=== PATIENT | female | born 1955 | race Caucasian/White ===

== ENCOUNTER → 2016-10-14 | Outpatient (CLI) | payer BC ==
--- NOTE | 2016-10-14 09:06 | XR ---
EXAMINATION TYPE: XR cervical spine limited DATE OF EXAM: 10/14/2016 8:50 AM COMPARISON: NONE HISTORY: 61-year-old female with neck pain TECHNIQUE: 4 views FINDINGS: There is uncovertebral joint arthropathy mid cervical spine and mild endplate spondylosis upper third cervical spine. There is normal alignment. No predental space widening or prevertebral soft tissue s welling. Odontoid view is normal. IMPRESSION: Mild multilevel spondylotic change. No malalignment or acute osseous abnormality seen.
== END | disposition home or self-care (01) ==
LOC: RADXRMAIN 08:32
PROVIDERS: ATTEND Psychiatry & Neurology Neurology
DX: M47.812 Spondylosis without myelopathy or radiculopathy, cervical region (principal)
CPT/HCPCS: 72040

== ENCOUNTER → 2017-01-12 | Outpatient (CLI) | payer BC ==
--- NOTE | 2017-01-12 13:49 | MR ---
EXAMINATION TYPE: MR cervical spine wo con DATE OF EXAM: 01/12/2017 11:33 AM COMPARISON: Radiographs 10/14/2016 HISTORY: 61-year-old female with neck pain TECHNIQUE: Multiplanar, multisequence images of the cervical spine were acquired. FINDINGS: No craniocervical junction abnormality, predental space widening, or prevertebral soft tissue swellin g. There is normal alignment of the cervical spine. No suspicious bone marrow placement. There is desiccation of the intervertebral discs with mild disc interspace narrowing particularly at C4-C5 and C5-C6. Minimal disc osteophyte complexes are present at these levels with corresponding ligamentum flavum th ickening. Additional facet and uncovertebral joint degenerative changes present. At C2-C3, mild facet arthropathy without canal or foraminal stenosis. At C3-C4, there is mild facet arthropathy without canal or foraminal stenosis. At C4-C5, slightly ventral thecal thickening with uncovertebral joint and facet arthropathy. Changes minimally narrow the right neural foramen. There is also mild attenuation of the thecal sac without s ignificant spinal canal stenosis. Abutment of the ventral cord is also present without significant co rd flattening or cord compression. At C5-C6, there is bilateral facet arthropathy and eccentric right-sided uncovertebral joint arthropa thy. Small disc osteophyte complex with ligamentum flavum thickening is also noted. There is abutment and very minimal ventral cord flattening with mild canal stenosis. Changes also result in a moderate right neuroforaminal stenosis here. At C6-C7, no spinal canal or neuroforaminal stenosis. At C7-T1, no spinal canal or neuroforaminal stenosis. Normal course and signal intensity of the cervical cord. There is a 5 mm T2 hyperintense nodule within the left lobe of the thyroid gland incidentally seen. O therwise, no prevertebral or paravertebral soft tissue abnormality. IMPRESSION: 1. Mild multilevel degenerative disc disease. Additional scattered facet and uncovertebral joint arth ropathy. 2. Changes are greatest at C4-C5 and C5-C6 where there is very mild spinal canal narrowing. Disc oste ophyte complex abuts the cord at these levels without any cord deformation or cord compression. 3. Moderate right neuroforaminal stenosis at C5-C6.
== END | disposition home or self-care (01) ==
LOC: RADMRIMAIN 11:00
PROVIDERS: ATTEND Psychiatry & Neurology Neurology
DX: M48.02 Spinal stenosis, cervical region (principal); M99.71 Connective tissue and disc stenosis of intervertebral foramina of cervical region; M50.30 Other cervical disc degeneration, unspecified cervical region; M46.92 Unspecified inflammatory spondylopathy, cervical region
CPT/HCPCS: 72141

== ENCOUNTER → 2018-07-10 | Outpatient (CLI) | payer MEDICARE ==
--- NOTE | 2018-07-13 09:49 | MM ---
Reason for exam: screening (asymptomatic). Last mammogram was performed 1 year ago. History: benign breast biopsy right breast MG 3D Screening Mammo W/Cad Bilateral CC and MLO view(s) were taken. Prior study comparison: July 01, 2017, bilateral mammogram, performed at [facility]. April 08, 2016, bilateral mammogram, performed at [facility]. The breast tissue is heterogeneously dense. This may lower the sensitivity of mammography. No suspicious abnormality. ASSESSMENT: Negative, BI-RAD 1 RECOMMENDATION: Routine screening mammogram of both breasts in 1 year.
== END | disposition home or self-care (01) ==
LOC: RADMAMWWP 07:00
PROVIDERS: ATTEND Obstetrics & Gynecology
DX: Z12.31 Encounter for screening mammogram for malignant neoplasm of breast (principal); Z78.0 Asymptomatic menopausal state
CPT/HCPCS: 77063; 77067

== ENCOUNTER → 2018-08-25 | Outpatient (CLI) | payer MEDICARE ==
--- NOTE | 2018-08-25 16:51 | BD ---
EXAMINATION TYPE: Axial Bone Density DATE OF EXAM: 08/25/2018 COMPARISON: NONE CLINICAL HISTORY: 63 YR OLD FEMALE....ICD-10 CODE: Z13.820 ENCOUNTER FOR SCREENING Height: 65.2 Weight: 107 FRAX RISK QUESTIONS: Current Tobacco Use: YES RISK FACTORS HISTORY OF: Active: YES Diet low in dairy products/other sources of calcium: YES Postmenopausal woman: HYST AT 42 YRS OLD, THEN DHAVAL AT 48 MEDICATIONS: Prednisone or other steroids: INHALERS PRN NEEDED FOR ILLNESS Additional Medications: BP MEDS, REFLUX MEDS, VIT D Additional History: NOTHING TO NOTE EXAM MEASUREMENTS: Bone mineral densitometry was performed using the [employer] System. Bone mineral density as measured about the Lumbar spine is: ----- L1-L4(G/cm2): 1.074 T Score Values are as follows: ----- L1: -1.2 ----- L2: -1.0 ----- L3: -0.4 ----- L4: -1.1 ----- L1-L4: -0.9 Bone mineral density FIRST BONE DENSITY AT [facility] Bone mineral density about the R hip (g/cm2): 1.110 Bone mineral density about the L hip (g/cm2): 1.093 T Score values are as follows: -----R Neck: 0.0 -----L Neck: -0.2 -----R Total: 0.8 -----L Total: 0.7 Bone mineral density THIS IS HER FIRST BONE DENSITY AT [facility] FRAX%s: THERE IS A 5.4% CHANCE FOR A MAJOR OSTEOPOROTIC FX AND A 0.4% FOR HIP FX....PROBABILITY OF FX IN 10 YRS TIME IMPRESSION: Normal (Values between +1 and -1 indicate normal bone mass). Consider repeating this study in 5 year s or sooner if there is some new clinical indication. NOTE: T-SCORE=SD OF THE YOUNG ADULT MEAN.
== END | disposition home or self-care (01) ==
LOC: RADBDWWP 07:11
PROVIDERS: ATTEND Obstetrics & Gynecology
DX: Z13.820 Encounter for screening for osteoporosis (principal); Z78.0 Asymptomatic menopausal state
CPT/HCPCS: 77080

== ENCOUNTER 2019-06-13 16:43 | Observation (INO) | payer MEDICARE ==
[2019-06-13] MEDS ORDERED: SODIUM CHLORIDE 0.9% 1,000 ML IV STA ×2 (17:46)
--- NOTE | 2019-06-13 17:46 | ED ---
Syncope HPI - General Chief Complaint: Syncope Stated Complaint: Syncope, headache Time Seen by Provider: 06/13/19 17:02 Source: patient, RN notes reviewed, old records reviewed Mode of arrival: wheelchair Limitations: no limitations - History of Present Illness Initial Comments: This is a 63-year-old female the ER status post syncopal event tonight. Patient syncopal event 1 the kitchen trying to eat dinner. Patient has history of vertigo she does take meclizine was unhelpful. Family very concerned over patient, has had vertigo for about 5 years with no improvement in symptoms. Multiple evaluations including neurology. Patient is had one prior syncopal episode this is her second. Patient complains of right elbow pain right hip pain. She was able to get up off the ground after some time and ambulate. did find her after she fell. She denies vomiting to prolonged amount of time the ground. Patient is recent medication changes she has headaches chronic headaches. No chest pain no shortness of breath no abdominal pain. Appetite has been severely diminished as of late MD Complaint: loss of consciousness, collapsed -: hour(s) Prodromal Symptoms: headache (Chronic), lightheaded (Vertiginous symptoms), nausea/vomiting (Decreased appetite) -: second(s) Witnessed: yes - by bystander Injuries Sustained Associated with Event: RUE, RLE Current Symptoms: back to baseline History: previous syncopal episode, other (History of vertigo severe) - Related Data Home Medications Medication Instructions Recorded Confirmed Aspirin EC [Ecotrin Low Dose] 81 mg PO HS 06/13/19 06/13/19 Cholecalciferol [Vitamin D3 (25 5,000 unit PO HS 06/13/19 06/13/19 Mcg = 1000 Iu)] Meclizine [Antivert] 25 mg PO TID PRN 06/13/19 06/13/19 Metoprolol Succinate [Toprol XL] 25 mg PO HS 06/13/19 06/13/19 Allergies Allergy/AdvReac Type Severity Reaction Status Date / Time No Known Allergies Allergy Verified 06/13/19 18:05 Review of Systems ROS Statement: Those systems with pertinent positive or pertinent negative responses have been documented in the HPI. ROS Other: All systems not noted in ROS Statement are negative. Past Medical History Past Medical History: COPD, Syncope History of Any Multi-Drug Resistant Organisms: None Reported Past Surgical History: Appendectomy, Hysterectomy, Orthopedic Surgery Past Psychological History: No Psychological Hx Reported Smoking Status: Current every day smoker Past Alcohol Use History: None Reported Past Drug Use History: None Reported General Exam Limitations: no limitations General appearance: alert, in no apparent distress Head exam: Present: atraumatic, normocephalic, normal inspection Eye exam: Present: normal appearance, EOMI. Absent: scleral icterus, conjunctival injection, periorbital swelling ENT exam: Present: normal exam, mucous membranes moist Neck exam: Present: normal inspection. Absent: tenderness, meningismus, lymphadenopathy Respiratory exam: Present: normal lung sounds bilaterally. Absent: respiratory distress, wheezes, rales, rhonchi, stridor Cardiovascular Exam: Present: regular rate, normal rhythm, normal heart sounds. Absent: systolic murmur, diastolic murmur, rubs, gallop, clicks GI/Abdominal exam: Present: soft, normal bowel sounds. Absent: distended, tenderness, guarding, rebound, rigid Extremities exam: Present: normal inspection, full ROM, normal capillary refill. Absent: tenderness, pedal edema, joint swelling, calf tenderness Back exam: Present: normal inspection Neurological exam: Present: alert, oriented X3, CN II-XII intact Psychiatric exam: Present: normal affect, normal mood Skin exam: Present: warm, dry, intact, normal color. Absent: rash Course Vital Signs 06/13/19 06/13/19 16:51 19:14 Temperature 98.0 F 98.3 F Pulse Rate 73 63 Respiratory 18 18 Rate Blood Pressure 162/67 126/68 O2 Sat by Pulse 98 97 Oximetry - Reevaluation(s) Reevaluation #1: 06/13/19 17:46 Medical records reviewed Reevaluation #2: 06/13/19 20:03 Patient has no recurrent syncopal episode here in the ER - Consultations Consultation #1: Spoke Dr. Curtis anna for patient admission EKG Findings - EKG Comments: EKG Findings:: EKG shows sinus rhythm rate of 70, PA 122, QRS 66, QTc 477 Medical Decision Making - Medical Decision Making 63 female the ER with persistent vertigo, syncope. Patient will be admitted for evaluation regarding syncope, patient also has new lung mass undiagnosed prior. Weight loss. Dehydration. - Lab Data Result diagrams: 06/13/19 17:50 06/13/19 17:50 Lab Results 06/13/19 06/13/19 06/13/19 Range/Units 17:50 17:50 17:50 WBC 9.0 (3.8-10.6) k/uL RBC 4.71 (3.80-5.40) m/uL Hgb 14.8 (11.4-16.0) gm/dL Hct 45.8 (34.0-46.0) % MCV 97.2 (80.0-100.0) fL MCH 31.5 (25.0-35.0) pg MCHC 32.4 (31.0-37.0) g/dL RDW 13.6 (11.5-15.5) % Plt Count 144 L (150-450) k/uL Neutrophils % 80 % Lymphocytes % 12 % Monocytes % 5 % Eosinophils % 1 % Basophils % 0 % Neutrophils # 7.2 (1.3-7.7) k/uL Lymphocytes # 1.1 (1.0-4.8) k/uL Monocytes # 0.5 (0-1.0) k/uL Eosinophils # 0.1 (0-0.7) k/uL Basophils # 0.0 (0-0.2) k/uL PT (9.0-12.0) sec INR (<1.2) APTT (22.0-30.0) sec Sodium 140 (137-145) mmol/L Potassium 4.0 (3.5-5.1) mmol/L Chloride 105 (98-107) mmol/L Carbon Dioxide 27 (22-30) mmol/L Anion Gap 8 mmol/L BUN 26 H (7-17) mg/dL Creatinine 0.96 (0.52-1.04) mg/dL Est GFR (CKD-EPI)AfAm 72 (>60 ml/min/1.73 sqM) Est GFR (CKD-EPI)NonAf 62 (>60 ml/min/1.73 sqM) Glucose 106 H (74-99) mg/dL Plasma Lactic Acid Misael 0.8 (0.7-2.0) mmol/L Calcium 9.4 (8.4-10.2) mg/dL Phosphorus 3.7 (2.5-4.5) mg/dL Magnesium 2.0 (1.6-2.3) mg/dL Total Bilirubin 0.4 (0.2-1.3) mg/dL AST 23 (14-36) U/L ALT 18 (9-52) U/L Alkaline Phosphatase 70 (38-126) U/L Creatine Kinase 59 (30-135) U/L Troponin I (0.000-0.034) ng/mL Total Protein 6.7 (6.3-8.2) g/dL Albumin 4.0 (3.5-5.0) g/dL TSH 2.400 (0.465-4.680) mIU/L Urine Color Urine Appearance (Clear) Urine pH (5.0-8.0) Ur Specific [place] (1.001-1.035) Urine Protein (Negative) Urine Glucose (UA) (Negative) Urine Ketones (Negative) Urine Blood (Negative) Urine Nitrite (Negative) Urine Bilirubin (Negative) Urine Urobilinogen (<2.0) mg/dL Ur Leukocyte Esterase (Negative) Urine RBC (0-5) /hpf Urine WBC (0-5) /hpf Ur Squamous Epith Cells (0-4) /hpf Amorphous Sediment (None) /hpf Urine Mucus (None) /hpf 06/13/19 06/13/19 06/13/19 Range/Units 17:50 17:50 18:05 WBC (3.8-10.6) k/uL RBC (3.80-5.40) m/uL Hgb (11.4-16.0) gm/dL Hct (34.0-46.0) % MCV (80.0-100.0) fL MCH (25.0-35.0) pg MCHC (31.0-37.0) g/dL RDW (11.5-15.5) % Plt Count (150-450) k/uL Neutrophils % % Lymphocytes % % Monocytes % % Eosinophils % % Basophils % % Neutrophils # (1.3-7.7) k/uL Lymphocytes # (1.0-4.8) k/uL Monocytes # (0-1.0) k/uL Eosinophils # (0-0.7) k/uL Basophils # (0-0.2) k/uL PT 9.7 (9.0-12.0) sec INR 0.9 (<1.2) APTT 22.1 (22.0-30.0) sec Sodium (137-145) mmol/L Potassium (3.5-5.1) mmol/L Chloride (98-107) mmol/L Carbon Dioxide (22-30) mmol/L Anion Gap mmol/L BUN (7-17) mg/dL Creatinine (0.52-1.04) mg/dL Est GFR (CKD-EPI)AfAm (>60 ml/min/1.73 sqM) Est GFR (CKD-EPI)NonAf (>60 ml/min/1.73 sqM) Glucose (74-99) mg/dL Plasma Lactic Acid Misael (0.7-2.0) mmol/L Calcium (8.4-10.2) mg/dL Phosphorus (2.5-4.5) mg/dL Magnesium (1.6-2.3) mg/dL Total Bilirubin (0.2-1.3) mg/dL AST (14-36) U/L ALT (9-52) U/L Alkaline Phosphatase (38-126) U/L Creatine Kinase (30-135) U/L Troponin I <0.012 (0.000-0.034) ng/mL Total Protein (6.3-8.2) g/dL Albumin (3.5-5.0) g/dL TSH (0.465-4.680) mIU/L Urine Color Yellow Urine Appearance Clear (Clear) Urine pH 5.0 (5.0-8.0) Ur Specific [place] 1.021 (1.001-1.035) Urine Protein Negative (Negative) Urine Glucose (UA) Negative (Negative) Urine Ketones Negative (Negative) Urine Blood Negative (Negative) Urine Nitrite Negative (Negative) Urine Bilirubin Negative (Negative) Urine Urobilinogen <2.0 (<2.0) mg/dL Ur Leukocyte Esterase Trace H (Negative) Urine RBC 2 (0-5) /hpf Urine WBC 7 H (0-5) /hpf Ur Squamous Epith Cells 4 (0-4) /hpf Amorphous Sediment Rare H (None) /hpf Urine Mucus Rare H (None) /hpf - Radiology Data Radiology results: report reviewed (CT brain is negative for acute disease x-ray right elbow and right hip negative for traumatic injury, chest x-ray shows likely mass, CT of chest began shows likely lung mass), image reviewed Disposition Clinical Impression: Vasovagal syncope, Syncope, Vertigo, Lung mass Disposition: ADMITTED IP TO THIS HOSP Condition: Fair Is patient prescribed a controlled substance at d/c from ED?: No Referrals: Chris Grossman MD [Primary Care Provider] - 1-2 days
[2019-06-13 18:07] LABS: Basophils % (A) 0 %; Eosinophils # (A) 0.1 k/uL (0-0.7); Eosinophils % (A) 1 %; HCT 45.8 % (34.0-46.0); HGB 14.8 gm/dL (11.4-16.0); Lymphocytes # (A) 1.1 k/uL (1.0-4.8); Lymphocytes % (A) 12 %; MCH 31.5 pg (25.0-35.0); MCHC 32.4 g/dL (31.0-37.0); MCV 97.2 fL (80.0-100.0); Mean Platelet Volume 7.9; Monocytes # (A) 0.5 k/uL (0-1.0); Monocytes % (A) 5 %; Neutrophils # (A) 7.2 k/uL (1.3-7.7); Neutrophils % (A) 80 %; Platelet Count 144 k/uL (150-450); RBC 4.71 m/uL (3.80-5.40); RDW 13.6 % (11.5-15.5)
[2019-06-13 18:16] LABS: Calcium 9.4 mg/dL (8.4-10.2); Phosphorus 3.7 mg/dL (2.5-4.5); Total Bilirubin 0.4 mg/dL (0.2-1.3); Total Protein 6.7 g/dL (6.3-8.2)
--- NOTE | 2019-06-13 18:25 | CT ---
EXAMINATION TYPE: CT brain wo con DATE OF EXAM: 06/13/2019 COMPARISON: None HISTORY: Weakness and dizziness. No known injury CT DLP: 1052.4 mGycm Automated exposure control for dose reduction was used. FINDINGS: Ventricles of normal size. There is no mass effect nor midline shift. There is no sign of intracrania l hemorrhage. The calvarium is intact. IMPRESSION: MILD ATROPHY. NO ACUTE INTRACRANIAL ABNORMALITY.
[2019-06-13 18:30] LABS: Amorphous Sediment,Urine Rare /hpf; Appearance,Urine Clear (Clear); Bilirubin,Urine Negative (Negative); Blood,Urine Negative (Negative); Color,Urine Yellow; Glucose,Urine (UA) Negative (Negative); Ketones,Urine Negative (Negative); Leukocyte Esterase,Urine Trace (Negative); Mucus,Urine Rare /hpf; Nitrite,Urine Negative (Negative); Protein,Urine Negative (Negative); RBC,Urine 2 /hpf (0-5); Specific Gravity,Urine 1.021 (1.001-1.035); Squamous Epithelial Cell,Urine 4 /hpf (0-4); Urobilinogen,Urine <2.0 mg/dL (<2.0)
[2019-06-13 18:34] LABS: INR 0.9 (<1.2); Partial Thromboplastin Time 22.1 sec (22.0-30.0); Prothrombin Time 9.7 sec (9.0-12.0)
--- NOTE | 2019-06-13 18:54 | XR ---
EXAMINATION TYPE: XR elbow complete RT DATE OF EXAM: 06/13/2019 COMPARISON: NONE HISTORY: Elbow pain TECHNIQUE: 3 views FINDINGS: There is minor spurring on the olecranon process of the ulna. I see no fracture nor disloca tion. Joint spaces are fairly normal. IMPRESSION: Minor spur formation. No fracture seen.
--- NOTE | 2019-06-13 18:54 | XR ---
EXAMINATION TYPE: XR chest 2V DATE OF EXAM: 06/13/2019 COMPARISON: NONE HISTORY: Weakness fall today. TECHNIQUE: Frontal and lateral views of the chest are obtained. FINDINGS: There is coarsening of the interstitial pulmonary markings. Heart size is normal. There ar e chest leads. Costophrenic angles are clear. There is 1.8 cm masslike density in the lateral right u pper lobe. There is no pneumothorax. IMPRESSION: Coarse lung markings. Right upper lobe masslike density. Follow-up recommended.
--- NOTE | 2019-06-13 18:55 | XR ---
EXAMINATION TYPE: XR Hip RT and AP Pelvis DATE OF EXAM: 06/13/2019 COMPARISON: NONE HISTORY: Hip pain TECHNIQUE: A single AP view of the pelvis is obtained. Two views of the right hip are obtained. FINDINGS: The pelvic ring is intact. Proximal right femur and hip joint appear normal. There is no si gn of hip dysplasia. Sacroiliac joints appear intact. IMPRESSION: Negative pelvis and right hip exam.
--- NOTE | 2019-06-13 19:28 | CT ---
EXAMINATION TYPE: CT abdomen pelvis w con DATE OF EXAM: 06/13/2019 COMPARISON: None HISTORY: SOB CT DLP: 486.4 mGycm Automated exposure control for dose reduction was used. TECHNIQUE: Helical acquisition of images was performed from the lung bases through the pelvis. CONTRAST: Performed without Oral Contrast and with IV Contrast, patient injected with 100 mL of Isovue 370. FINDINGS: There is some patchy reticular density at the lung bases consistent with scarring and atelectasis. He art is borderline enlarged. There is no pleural effusion. There is no pericardial effusion. Liver shows no focal defect. Spleen is intact. Stomach appears normal. There is no evidence of pancre atic mass. Gallbladder shows multiple gallstones. There is no adrenal mass. Kidneys show satisfactory contrast opacification. There is no hydronephrosi s. There is 3.5 cm cortical cyst lateral right kidney. Ureters are not dilated. There is no retroperi toneal adenopathy. Bladder distends smoothly. There is no inguinal hernia. There is no free fluid in the pelvis. There is no mesenteric edema. There is no ascites or free air. There is no sign of a bowel obstruction. Abdominal aorta is atheromatous. Lumbar spine is intact. The re is no compression fracture. Bony pelvis is intact.: Appendix is not seen. There is no sign of thickened appendix. IMPRESSION: THERE ARE NUMEROUS GALLSTONES. NO DILATED DUCTS. NO SIGN OF ACUTE ABDOMEN AND PELVIS.
--- NOTE | 2019-06-13 19:33 | CT ---
EXAMINATION TYPE: CT angio chest DATE OF EXAM: 06/13/2019 7:22 PM COMPARISON: None HISTORY: SOB CT DLP: 241.9 mGycm Automated exposure control for dose reduction was used. CONTRAST: CTA scan of the thorax is performed with IV Contrast, patient injected with 100 mL of Isovue 370, pul monary embolism protocol. . There are 3-D post processed images. FINDINGS: There is coarse interstitial infiltrate in both lungs with honeycomb pattern. There is pulmonary emph ysema. There is 2.1 cm noncalcified stellate mass in the right upper lobe laterally adjacent to the c hest wall. This is in the posterior segment of the right upper lobe. There is no pleural effusion. Heart is slightly enlarged. There is normal contrast opacification of the pulmonary arteries. I see no filling defect. There is n o mediastinal adenopathy. There are a few mediastinal lymph nodes that measure up to 10 mm. Thoracic aorta shows no aneurysm or dissection. The ascending aorta measures 3.9 cm. Thoracic spine is intact. Ribs appear intact. Sternum appears normal. IMPRESSION: NO EVIDENCE OF PULMONARY EMBOLISM. CHANGES IN THE LUNGS CONSISTENT WITH ADVANCED INTERSTITIAL FIBROSIS AND MILD EMPHYSEMA. STELLATE RIGHT UPPER LOBE MASS SUGGESTIVE OF PRIMARY MALIGNANCY.
[2019-06-13] MEDS ORDERED: MORPHINE SULFATE 4 MG/ML SYRINGE IV PRN (20:00)
[2019-06-13] MEDS ORDERED: NITROGLYCERIN SL TABS 0.4 MG TAB SUBLINGUAL PRN (20:00)
[2019-06-13] MEDS ORDERED: LORazepam 2 MG/ML INJ IV STA (20:33)
[2019-06-13] MEDS ORDERED: LORazepam 2 MG/ML INJ IV PRN (20:33)
[2019-06-13] MEDS ORDERED: MECLIZINE 25 MG TAB PO PRN (22:20)
[2019-06-13] MEDS ORDERED: METOPROLOL SUCCINATE (ER) 25 MG TAB.ER.24H PO SCH (22:30)
[2019-06-13] MEDS: CHOLECALCIFEROL 1,000 UNIT TAB PO SCH (23:31)
[2019-06-13] MEDS: ACETAMINOPHEN TAB 325 MG TAB PO PRN (23:33)
[2019-06-14 05:15] VITALS: RESP 16
[2019-06-14 06:40] LABS: Cholesterol 126 mg/dL (<200); HDL Cholesterol 41 mg/dL (40-60); LDL Cholesterol,Calculated 69 mg/dL (0-99); Triglycerides 81 mg/dL (<150)
[2019-06-14] MEDS: ENOXAPARIN 40 MG/0.4 ML SYRINGE SQ SCH (07:49)
[2019-06-14] MEDS: MORPHINE SULFATE 4 MG/ML SYRINGE IV PRN (07:55)
--- NOTE | 2019-06-14 08:27 | P.CNPUL ---
History of Present Illness Consult date: 06/14/19 Reason for consult: dyspnea, cough, COPD, pulmonary fibrosis Chief complaint: Syncopal episode History of present illness: This is a 63-year-old female with extensive history of smoking and nicotine use with the history of pulmonary fibrosis data as per of cane from the daughter suggestive of the nodule in the lung but however I couldn't find any x-rays in [facility] record up to 2016 she underwent extensive radiographic studies for a syncopal episode a chest x-ray was suggestive of pulmonary fibrosis predominantly upper lobe with right upper lobe mass about 2 cm in size computed tomography scan confirmed presence of mass, also have extensive honeycombing suggestive of IPF the tumor is very close to thoracic wall and should be accessible with CT-guided biopsy Review of Systems All systems: negative Past Medical History Past Medical History: COPD, GERD/Reflux, Hypertension, Pneumonia, Syncope Additional Past Medical History / Comment(s): 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, vertigo History of Any Multi-Drug Resistant Organisms: None Reported Past Surgical History: Appendectomy, Hysterectomy, Orthopedic Surgery Additional Past Surgical History / Comment(s): Right knee scope Past Anesthesia/Blood Transfusion Reactions: Postoperative Nausea & Vomiting (PONV) Past Psychological History: No Psychological Hx Reported Smoking Status: Current every day smoker Past Alcohol Use History: None Reported Past Drug Use History: None Reported Medications and Allergies Home Medications Medication Instructions Recorded Confirmed Type Aspirin EC [Ecotrin Low Dose] 81 mg PO HS 06/13/19 06/13/19 History Cholecalciferol [Vitamin D3 (25 5,000 unit PO HS 06/13/19 06/13/19 History Mcg = 1000 Iu)] Meclizine [Antivert] 25 mg PO TID PRN 06/13/19 06/13/19 History Metoprolol Succinate [Toprol XL] 25 mg PO HS 06/13/19 06/13/19 History Allergies Allergy/AdvReac Type Severity Reaction Status Date / Time nicotine Allergy Rash/Hives Verified 06/13/19 22:01 varenicline [From Chantix] Allergy Rash/Hives Verified 06/13/19 22:01 Physical Exam Vitals: Vital Signs Temp Pulse Pulse Resp BP BP Pulse Ox 06/14/19 05:00 98.0 F 53 L 16 125/66 93 L 06/13/19 23:30 58 L 18 06/13/19 21:00 98.2 F 59 L 20 137/67 93 L 06/13/19 20:26 89 17 133/63 96 06/13/19 19:14 98.3 F 63 18 126/68 97 06/13/19 16:51 98.0 F 73 18 162/67 98 Intake and Output 06/13/19 06/14/19 06/14/19 22:59 06:59 14:59 Intake Total 200 590 Balance 200 590 Intake: Intake, IV Titration 200 Amount Sodium Chloride 0.9% 1, 200 000 ml @ 100 mls/hr IV . Q10H STA Rx#:[id number] Oral 590 Other: Voiding Method Bedside Commode Bedside Commode # Voids 2 Weight 47.627 kg - Constitutional General appearance: average body habitus, cooperative, disheveled, mild distress - EENT Eyes: EOMI, PERRLA, poor dentition, normal appearance ENT: normal oropharynx Ears: bilateral: normal - Neck Neck: normal ROM Carotids: bilateral: upstroke normal Thyroid: bilateral: normal size - Respiratory Respiratory: bilateral: CTA, rales (Dry Rales bilaterally) - Cardiovascular Rhythm: regular Heart sounds: normal: S1, S2 - Integumentary Integumentary: normal, normal turgor - Neurologic Neurologic: CNII-XII intact - Musculoskeletal Musculoskeletal: gait normal, generalized weakness, strength equal bilaterally - Psychiatric Psychiatric: A&O x's 3, appropriate affect, intact judgment & insight Results - Laboratory Findings CBC and BMP: 06/13/19 17:50 06/13/19 17:50 PT/INR, D-dimer PT 9.7 sec (9.0-12.0) 06/13/19 17:50 INR 0.9 (<1.2) 06/13/19 17:50 Abnormal lab findings: Abnormal Labs 06/13/19 06/13/19 06/13/19 17:50 17:50 18:05 Plt Count 144 L BUN 26 H Glucose 106 H Ur Leukocyte Esterase Trace H Urine WBC 7 H Amorphous Sediment Rare H Urine Mucus Rare H - Diagnostic Findings Chest x-ray: report reviewed, image reviewed CT scan - chest: report reviewed, image reviewed (Finding as noted above on CAT scan and x-ray) Assessment and Plan Assessment: Right upper lobe mass/nodule 2.1 cm highly cystic of neoplasm End-stage lung disease secondary severe COPD emphysema Syncopal episode of unclear etiology IPF Extensive smoking and nicotine use History of chronic vertigo Plan: Consult interventional radiology for CT-guided biopsy of right upper lobe mass Patient can be placed on bronchodilators as needed further workup and evaluation as outpatient of COPD and IPF PET scan as outpatient Time with Patient: Greater than 30
[2019-06-14] MEDS ORDERED: ASPIRIN 325 MG TAB PO SCH (09:00)
[2019-06-14 13:05] VITALS: BMI 16.9
--- NOTE | 2019-06-14 15:06 | P.CRDCN ---
History of Present Illness History of present illness: This is a pleasant 63-year-old female past medical history significant for COPD, nonrheumatic aortic valve insufficiency, history of palpitations, vertigo and chronic nicotine dependence. She follows in the office with Dr. Hale. We have been asked to see her in consultation secondary to a syncopal episode. Per the patient and her family yesterday all day she had been feeling somewhat dizzy. She states she does have a history of vertigo in the past and is prescribed antivert. However, antivert didn't seem to be helping yesterday. She was getting up to walk in the house and started feeling increasingly dizzy and light headed. She was also nauseated and mildly diaphoretic. Next thing she knows she was on the floor. Her heard her fall and came to her aid. She believes there was a brief LOC. When she got up she continued to feel dizzy, nauseated and was diaphoretic. Blood pressure was not initially checked at home. An hour or so later they did check her BP and it was elevated around 150 systolic, which is abnormal for her. Typically she runs on the low side of normal per the daughter. On arrival blood pressure was 162/67 heart rate in the 60-80's. Telemetry tracings indicated this morning around 0437 she had a brief run of SVT heart rate was around 150. She was sleeping at the time and asymptomatic. Chest x-ray reveals coarse lung markings, right upper lobe masslike density. CTA chest negative for pulmonary embolism, advanced interstitial fibrosis, COPD and right upper lobe mass suggestive of primary malignancy. CT of the abdomen and pelvis is unremarkable. CT of the brain revealed mild atrophy with no acute intracranial abnormality. Laboratory data reviewed, WBC 9, hemoglobin 14.8, platelets 144, sodium 140, potassium 4.0, creatinine 0.96, magnesium 2.0, cardiac enzymes negative 3, TSH 2.4, LDL 69. Current daily cardiac medications include Toprol 25 mg at bedtime Most recent echocardiogram obtained in July 2018 in the office reveals preserved LV systolic function with ejection fraction 55%, no wall motion abnormalities, normal diastolic function, moderate mitral regurgitation, moderate aortic regurgitation, mild tricuspid regurgitation. At the time of my exam: CONSTITUTIONAL: Denies fever. Denies chills. EYES: Denies blurred vision. Denies vision changes. Denies eye pain. EARS, NOSE, MOUTH & THROAT: Denies headache. Denies sore throat. Denies ear pain. CARDIOVASCULAR: Denies chest pain. Denies shortness of breath. Denies orthopnea. Denies PND. Denies palpitations. RESPIRATORY: Denies cough. GASTROINTESTINAL: Denies abdominal pain. Denies diarrhea. Denies constipation. Denies nausea. Denies vomiting. MUSCULOSKELETAL: Denies myalgias. INTEGUMENTARY: Denies pruitis. Denies rash. NEUROLOGIC: Denies numbness. Denies tingling. Denies weakness. PSYCHIATRIC: Denies anxiety. Denies depression. ENDOCRINE: Denies fatigue. Denies weight change. Denies polydipsia. Denies polyurina. GENITOURINARY: Denies burning, hematuria or urgency with micturation. HEMATOLOGIC: Denies history of anemia. Denies bleeding. Blood pressure 137/67 heart rate 59 afebrile maintaining oxygen saturation on room air GENERAL: This is a 63-year-old female in no apparent distress at the time of my examination. HEENT: Head is atraumatic, normocephalic. Pupils are equal, round. Sclerae anicteric. Conjunctivae are clear. Mucous membranes of the mouth are moist. Neck is supple. There is no jugular venous distention. No carotid bruit is heard. LUNGS: Clear to auscultation no wheezes, rales or rhonchi. No chest wall tenderness is noted on palpation or with deep breathing. HEART: Regular rate and rhythm with systolic ejection murmur at the left sternal border, no rubs or gallops. S1 and S2 heard. ABDOMEN: Soft, nontender. Bowel sounds are heard. No organomegaly noted. EXTREMITIES: No evidence of peripheral edema and no calf tenderness noted. VASCULAR: Radial and dorsalis pedis pulses palpated, no evidence of clubbing. NEUROLOGIC: Patient is awake, alert and oriented x3. ASSESSMENT Syncopal episode Thrombocytopenia Right lung mass suggestive of primary malignancy, hold aspirin for interventional radiology COPD Non-rheumatic aortic valve insufficiency Chronic nicotine dependence PLAN An acute coronary event has been ruled out. Telemetry tracings us for have been unremarkable for bradycardia arrhythmia Obtain 2-D echocardiogram and Doppler study to assess cardiac structure and function. Increase toprol to 50 mg at bedtime. Ongoing telemetry monitoring for another 24 hours. Check for orthostatic changes. Thank you kindly for this consultation. Nurse Practitioner note has been reviewed, I agree with a documented findings and plan of care. Patient was seen and examined. Past Medical History Past Medical History: COPD, GERD/Reflux, Hypertension, Pneumonia, Syncope Additional Past Medical History / Comment(s): 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, vertigo History of Any Multi-Drug Resistant Organisms: None Reported Past Surgical History: Appendectomy, Hysterectomy, Orthopedic Surgery Additional Past Surgical History / Comment(s): Right knee scope Past Anesthesia/Blood Transfusion Reactions: Postoperative Nausea & Vomiting (PONV) Past Psychological History: No Psychological Hx Reported Smoking Status: Current every day smoker Past Alcohol Use History: None Reported Past Drug Use History: None Reported Medications and Allergies Home Medications Medication Instructions Recorded Confirmed Type Aspirin EC [Ecotrin Low Dose] 81 mg PO HS 06/13/19 06/13/19 History Cholecalciferol [Vitamin D3 (25 5,000 unit PO HS 06/13/19 06/13/19 History Mcg = 1000 Iu)] Meclizine [Antivert] 25 mg PO TID PRN 06/13/19 06/13/19 History Metoprolol Succinate [Toprol XL] 25 mg PO HS 06/13/19 06/13/19 History Allergies Allergy/AdvReac Type Severity Reaction Status Date / Time nicotine Allergy Rash/Hives Verified 06/13/19 22:01 [email or web address] [From Chantix] Allergy Rash/Hives Verified 06/13/19 22:01 Physical Exam Vitals: Vital Signs Temp Pulse Pulse Resp BP BP Pulse Ox 06/14/19 11:44 98.5 F 56 L 16 151/67 97 06/14/19 05:00 98.0 F 53 L 16 125/66 93 L 06/13/19 23:30 58 L 18 06/13/19 21:00 98.2 F 59 L 20 137/67 93 L 06/13/19 20:26 89 17 133/63 96 06/13/19 19:14 98.3 F 63 18 126/68 97 06/13/19 16:51 98.0 F 73 18 162/67 98 Intake and Output 06/13/19 06/14/19 06/14/19 22:59 06:59 14:59 Intake Total 200 590 Balance 200 590 Intake: Intake, IV Titration 200 Amount Sodium Chloride 0.9% 1, 200 000 ml @ 100 mls/hr IV . Q10H STA Rx#:[id number] Oral 590 Other: Voiding Method Bedside Commode Bedside Commode # Voids 2 Weight 47.627 kg 47.627 kg Results 06/13/19 17:50 06/13/19 17:50 Cardiac Enzymes 06/13/19 06/13/19 06/13/19 Range/Units 17:50 17:50 22:34 AST 23 (14-36) U/L Troponin I <0.012 <0.012 (0.000-0.034) ng/mL 06/14/19 Range/Units 06:10 AST (14-36) U/L Troponin I <0.012 (0.000-0.034) ng/mL Coagulation 06/13/19 Range/Units 17:50 PT 9.7 (9.0-12.0) sec APTT 22.1 (22.0-30.0) sec Lipids 06/14/19 Range/Units 06:10 Triglycerides 81 (<150) mg/dL Cholesterol 126 (<200) mg/dL HDL Cholesterol 41 (40-60) mg/dL CBC 06/13/19 Range/Units 17:50 WBC 9.0 (3.8-10.6) k/uL RBC 4.71 (3.80-5.40) m/uL Hgb 14.8 (11.4-16.0) gm/dL Hct 45.8 (34.0-46.0) % Plt Count 144 L (150-450) k/uL Comprehensive Metabolic Panel 06/13/19 Range/Units 17:50 Sodium 140 (137-145) mmol/L Potassium 4.0 (3.5-5.1) mmol/L Chloride 105 (98-107) mmol/L Carbon Dioxide 27 (22-30) mmol/L BUN 26 H (7-17) mg/dL Creatinine 0.96 (0.52-1.04) mg/dL Glucose 106 H (74-99) mg/dL Calcium 9.4 (8.4-10.2) mg/dL AST 23 (14-36) U/L ALT 18 (9-52) U/L Alkaline Phosphatase 70 (38-126) U/L Total Protein 6.7 (6.3-8.2) g/dL Albumin 4.0 (3.5-5.0) g/dL Current Medications Generic Name Dose Route Start Last Admin Trade Name Freq PRN Reason Stop Dose Admin Acetaminophen 650 mg 06/13/19 22:19 06/13/19 23:33 Tylenol Tab PO 650 mg Q4HR PRN Administration Fever and/ or Pain Aspirin 325 mg 06/14/19 09:00 06/14/19 07:49 Aspirin PO 325 mg DAILY JE Administration Cholecalciferol 5,000 unit 06/13/19 22:30 06/13/19 23:31 Vitamin D3 (25 Mcg = 1000 Iu) PO 5,000 unit HS JE Administration Enoxaparin Sodium 40 mg 06/14/19 09:00 06/14/19 07:49 Lovenox SQ 40 mg DAILY [facility] Administration Lorazepam 1 mg 06/13/19 20:33 Ativan IV Q4HR PRN Anxiety Meclizine HCl 25 mg 06/13/19 22:20 Antivert PO TID PRN Vertigo Metoprolol Succinate 25 mg 06/13/19 22:30 06/13/19 23:33 Toprol Xl PO 25 mg HS JE Administration Morphine Sulfate 4 mg 06/13/19 20:34 06/14/19 07:55 Morphine Sulfate (Inj) IV 4 mg Q4HR PRN Administration Pain Nitroglycerin 0.4 mg 06/13/19 20:00 Nitrostat SUBLINGUAL Q5M PRN Chest Pain Intake and Output 06/13/19 06/14/19 06/14/19 22:59 06:59 14:59 Intake Total 200 590 Balance 200 590 Intake: Intake, IV Titration 200 Amount Sodium Chloride 0.9% 1, 200 000 ml @ 100 mls/hr IV . Q10H STA Rx#:[id number] Oral 590 Other: Voiding Method Bedside Commode Bedside Commode # Voids 2 Weight 47.627 kg 47.627 kg Patient Weight 06/15/19 06:59 Weight 47.627 kg 06/13/19 17:50 06/13/19 17:50
--- NOTE | 2019-06-14 17:54 | P.HPIM ---
History of Present Illness H&P Date: 06/14/19 Chief Complaint: Nearly passed out History of presenting complaint: This is a 63-year-old patient of Dr. johnson from [facility]. Chronic stable medical conditions include COPD, GERD, hypertension. Patient's had dizziness for many years. And states has been worked up by several consultants including Dr. Villalobos ENT essential tremor. No specific diagnosis been found. Yesterday while she was at the house doing some light work she felt lightheaded and dizzy and she nearly then passed out. Patient has a baseline slight cough. Has chronically decreased appetite. Has been gradually losing weight. Upon admission telemetry did not show any arrhythmia. There is no chest pain no palpitation. Patient is found to have a lung mass which pulmonary was consulted. Patient's and daughter by the bedside. Patient has not brought up any hemoptysis. Does get a bit short of breath. Patient is a long- standing smoker. Dr. Hammer from pulmonary who noted the CT-guided biopsy of the lung mass. But because patient has taken aspirin this has to wait for about a week. Patient denies any weakness in a particular side. No change in speech or vision. No seizure activity. Review of systems: GEN.: Decreased appetite with loss EYES: None HEENT: None NECK: None RESPIRATORY: As above CARDIOVASCULAR: None GASTROINTESTINAL: None GENITOURINARY: None MUSCULOSKELETAL: Some pain in the joints] LYMPHATICS: None HEMATOLOGICAL: None PSYCHIATRY: None NEUROLOGICAL: No focal symptoms Past medical history to include: COPD, GERD, hypertension, vertigo workup in the past Social history: Smoking anywhere from half to pack and a close to 50 years. . No alcohol. Family history: Reviewed, noncontributory to presentation Physical examination: VITAL SIGNS: 98, 73, 18, 162/627, repeat blood pressure 126/68, 98% room air GENERAL: , BMI 16.9 laying in bed. EYES: Pupils equal. Conjunctiva normal. HEENT: External appearance of nose and ears normal, oral cavity grossly normal. NECK: JVD not raised; masses not palpable. HEART: First and second heart sounds are normal; no edema. LUNGS: Respiratory rate increased, lungs diminished breath sounds. ABDOMEN: Soft, nontender, liver spleen not palpable, no masses palpable. PSYCH: Alert and oriented x3; mood and affect but anxiousl. NEUROLOGICAL: Cranial nerves grossly intact; no facial asymmetry, power and sensation grossly intact. LYMPHATICS: No lymph nodes palpable in the axilla and neck MUSCULAR schedule: Evidence of OA especially in the hands and knees INVESTIGATIONS, reviewed in the clinical context: White count 19 lobe and 14.8 platelets 144 potassium 4 bun 26 creatinine 0.96 Troponin I 3 negative LDL 69 TSH 2.4 Computed tomography scan of brain-age related changes Chest x-ray film personally reviewed by me-shows hyperinflation and prominent interstitium Computed tomography scan of the abdomen and pelvis-numerous gallstones. No evidence of acute abdomen reported Computed tomography scan chest-pulmonary fibrosis, right upper lobe mass EKG tracing-normal sinus rhythm Assessment: -This is a patient who had a syncopal episode at home. There was no seizure- like activity. No chest pain no palpitation. This well could be vasovagal. Patient is put on telemetry to rule out any arrhythmia. -Right upper lung mass in a smoker. Due for needle biopsy. Have to wait for a week because patient had taken aspirin. -COPD in a current smoker -Chronic nicotine dependence patient is a cigarette smoker -Chronic pulmonary fibrosis -Severe protein calorie malnutrition. Patient is loss of subcu is tissue. Prominent bony eminence. BMI 16.9 -GERD -Essential hypertension -Primary Antoinette arthritis Plan: We will do a MRI of the brain with contrast to rule out any metastatic disease. Patient also put on telemetry to rule out any arrhythmia. Patient have The lung mass biopsy as an outpatient. Aspirin will to be stopped. Cardiology and pulmonary saw the patient. Did speak to patient's daughter and the . At length. - Past Medical History Past Medical History: COPD, GERD/Reflux, Hypertension, Pneumonia, Syncope Additional Past Medical History / Comment(s): 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, vertigo History of Any Multi-Drug Resistant Organisms: None Reported Past Surgical History: Appendectomy, Hysterectomy, Orthopedic Surgery Additional Past Surgical History / Comment(s): Right knee scope Past Anesthesia/Blood Transfusion Reactions: Postoperative Nausea & Vomiting (PONV) Past Psychological History: No Psychological Hx Reported Smoking Status: Current every day smoker Past Alcohol Use History: None Reported Past Drug Use History: None Reported Medications and Allergies Home Medications Medication Instructions Recorded Confirmed Type Aspirin EC [Ecotrin Low Dose] 81 mg PO HS 06/13/19 06/13/19 History Cholecalciferol [Vitamin D3 (25 5,000 unit PO HS 06/13/19 06/13/19 History Mcg = 1000 Iu)] Meclizine [Antivert] 25 mg PO TID PRN 06/13/19 06/13/19 History Metoprolol Succinate [Toprol XL] 25 mg PO HS 06/13/19 06/13/19 History Allergies Allergy/AdvReac Type Severity Reaction Status Date / Time nicotine Allergy Rash/Hives Verified 06/13/19 22:01 [email or web address] [From Chantix] Allergy Rash/Hives Verified 06/13/19 22:01 Physical Exam Vitals: Vital Signs Temp Pulse Pulse Resp BP BP Pulse Ox 06/14/19 05:00 98.0 F 53 L 16 125/66 93 L 06/13/19 23:30 58 L 18 06/13/19 21:00 98.2 F 59 L 20 137/67 93 L 06/13/19 20:26 89 17 133/63 96 06/13/19 19:14 98.3 F 63 18 126/68 97 06/13/19 16:51 98.0 F 73 18 162/67 98 Intake and Output 06/13/19 06/14/19 06/14/19 22:59 06:59 14:59 Intake Total 200 590 Balance 200 590 Intake: Intake, IV Titration 200 Amount Sodium Chloride 0.9% 1, 200 000 ml @ 100 mls/hr IV . Q10H STA Rx#:[id number] Oral 590 Other: Voiding Method Bedside Commode Bedside Commode # Voids 2 Weight 47.627 kg Results CBC & Chem 7: 06/13/19 17:50 06/13/19 17:50 Labs: Abnormal Lab Results - Last 24 Hours (Table) 06/13/19 06/13/19 06/13/19 Range/Units 17:50 17:50 18:05 Plt Count 144 L (150-450) k/uL BUN 26 H (7-17) mg/dL Glucose 106 H (74-99) mg/dL Ur Leukocyte Esterase Trace H (Negative) Urine WBC 7 H (0-5) /hpf Amorphous Sediment Rare H (None) /hpf Urine Mucus Rare H (None) /hpf Microbiology - Last 24 Hours (Table) 06/13/19 18:05 Urine Culture - Preliminary Urine,Voided Thrombosis Risk Factor Assmnt - Choose All That Apply Any of the Below Risk Factors Present?: Yes Each Factor Represents 1 point: Abnormal pulmonary function (COPD), Medical pt on bed rest Other Risk Factors: Yes Each Risk Factor Represents 2 Points: Age 61-74 years Other congenital or acquired thrombophilia - If yes, enter type in comment: No Thrombosis Risk Factor Assessment Total Risk Factor Score: 4 Thrombosis Risk Factor Assessment Level: Moderate Risk
[2019-06-14] MEDS: CHOLECALCIFEROL 1,000 UNIT TAB PO SCH (20:19)
[2019-06-14] MEDS ORDERED: METOPROLOL SUCCINATE (ER) 50 MG TAB.ER.24H PO SCH (21:00)
[2019-06-15] MEDS: ACETAMINOPHEN TAB 325 MG TAB PO PRN (02:01)
[2019-06-15] MEDS: ENOXAPARIN 40 MG/0.4 ML SYRINGE SQ SCH (07:22)
[2019-06-15] MEDS: MORPHINE SULFATE 4 MG/ML SYRINGE IV PRN (08:32)
[2019-06-15] MEDS ORDERED: METOPROLOL TARTRATE 25 MG TAB PO SCH (11:30)
--- NOTE | 2019-06-15 11:57 | ECHOF ---
Referral Reason:syncope MEASUREMENTS -------- HEIGHT: 167.6 cm WEIGHT: 47.6 kg BP: 151/67 RVIDd: 4.8 cm (< 3.3) IVSd: 0.9 cm (0.6 - 1.1) LVIDd: 4.3 cm (3.9 - 5.3) LVPWd: 1.0 cm (0.6 - 1.1) IVSs: 1.3 cm LVIDs: 3.1 cm LVPWs: 1.6 cm LAESV Index (A-L): 46.98 ml/m Ao Diam: 2.4 cm (2.0 - 3.7) AV Cusp: 1.9 cm (1.5 - 2.6) LA Diam: 3.7 cm (2.7 - 3.8) TAPSE: 2.7 cm EPSS: 0.6 cm MV E Haja: 0.87 m/s MV DecT: 308 ms MV A Haja: 0.83 m/s MV E/A Ratio: 1.04 AR PHT: 667 ms RAP: 5.00 mmHg RVSP: 47.01 mmHg MV EF SLOPE: 116.94 mm/s (70 - 150) MV EXCURSION: 1.73 cm (> 18.000) FINDINGS -------- Sinus rhythm. The left ventricular size is normal. Left ventricular wall thickness is normal. Overall left vent ricular systolic function is normal with, an EF between 55 - 60 %. The diastolic filling pattern is normal for the age of the patient. The right ventricle is moderately enlarged. The right ventricular systolic function is normal. Left atrium is severely dilated by volume. The right atrium is mildly enlarged. Interatrial and interventricular septum intact. The aortic valve is trileaflet and appears structurally normal. There is mild aortic regurgitation. There is no evidence of aortic stenosis. The mitral valve leaflets are mildly thickened. Mild mitral annular calcification present. Severe mitral regurgitation is present. Moderate tricuspid regurgitation present. There is mild to moderate pulmonary hypertension. The r ight ventricular systolic pressure, as measured by Doppler, is 47.01mmHg. Trace/mild (physiologic) pulmonic regurgitation. The aortic root size is normal. The inferior vena cava is mildly dilated. There is no pericardial effusion. CONCLUSIONS -------- 1. Sinus rhythm. 2. The left ventricular size is normal. 3. Left ventricular wall thickness is normal. 4. Overall left ventricular systolic function is normal with, an EF between 55 - 60 %. 5. The diastolic filling pattern is normal for the age of the patient. 6. The right ventricle is moderately enlarged. 7. The right ventricular systolic function is normal. 8. Left atrium is severely dilated by volume. 9. The right atrium is mildly enlarged. 10. Interatrial and interventricular septum intact. 11. The aortic valve is trileaflet and appears structurally normal. 12. There is mild aortic regurgitation. 13. There is no evidence of aortic stenosis. 14. The mitral valve leaflets are mildly thickened. 15. Mild mitral annular calcification present. 16. Severe mitral regurgitation is present. 17. Moderate tricuspid regurgitation present. 18. There is mild to moderate pulmonary hypertension. 19. The right ventricular systolic pressure, as measured by Doppler, is 47.01mmHg. 20. Trace/mild (physiologic) pulmonic regurgitation. 21. The aortic root size is normal. 22. The inferior vena cava is mildly dilated. 23. There is no pericardial effusion. WELDING MACHINE TENDER: Shruthi Dutton RDCS
[2019-06-15 14:05] VITALS: BP 133/60; PULSE 50; TEMP 98
--- NOTE | 2019-06-15 14:08 | P.PN ---
Subjective This is a pleasant 63-year-old female past medical history significant for COPD, nonrheumatic aortic valve insufficiency, history of palpitations, vertigo and chronic nicotine dependence. She follows in the office with Dr. Hale. She is seen and examined sitting up in bed in no acute distress. She denies chest pain, shortness of breath, increased dizziness or palpitations. Blood pressure 133/60 heart rate 50 afebrile and maintaining oxygen saturation on room air. Echocardiogram obtained reveals preserved LV systolic function with ejection fraction 55-60%, severe MR, moderate TR and mild to moderate pulmonary hypertension with an RVSP of 47 mmHg. GENERAL: This is a 63-year-old female in no apparent distress at the time of my examination. HEENT: Head is atraumatic, normocephalic. Pupils are equal, round. Sclerae ani cteric. Conjunctivae are clear. Mucous membranes of the mouth are moist. Neck is supple. There is no jugular venous distention. No carotid bruit is heard. LUNGS: Clear to auscultation no wheezes, rales or rhonchi. No chest wall tenderness is noted on palpation or with deep breathing. HEART: Regular rate and rhythm with systolic ejection murmur at the left sternal border, no rubs or gallops. S1 and S2 heard. EXTREMITIES: No evidence of peripheral edema and no calf tenderness noted. ASSESSMENT Syncopal episode Thrombocytopenia Right lung mass suggestive of primary malignancy, hold aspirin for interventional radiology COPD Non-rheumatic aortic valve insufficiency Chronic nicotine dependence PLAN Stable from a cardiac perspective. Follow-up in the office with Dr. Hale in one to 2 weeks. Nurse Practitioner note has been reviewed, I agree with a documented findings and plan of care. Patient was seen and examined. Objective - Vital Signs Vital signs: Vital Signs Temp 98 F 06/15/19 13:00 Pulse 50 L 06/15/19 13:00 Resp 16 06/15/19 13:00 BP 133/60 06/15/19 13:00 Pulse Ox 95 06/15/19 13:00 Intake & Output 06/14/19 06/15/19 06/15/19 18:59 06:59 18:59 Intake Total 800 400 480 Balance 800 400 480 Weight 47.627 kg 47.627 kg Intake: Intake, IV Titration 800 400 Amount Sodium Chloride 0.9% 1, 800 400 000 ml @ 100 mls/hr IV . Q10H STA Rx#:[id number] Oral 480 Other: Voiding Method Bedside Commode Toilet Toilet # Voids 1 2 - Labs CBC & Chem 7: 06/13/19 17:50 06/13/19 17:50 Labs: Microbiology - Last 24 Hours (Table) 06/13/19 18:05 Urine Culture - Final Urine,Voided
--- NOTE | 2019-06-15 15:03 | P.PN ---
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 Syncopal episode of unclear etiology IPF Extensive smoking and nicotine use History of chronic vertigo 06/15/2019, patient seen eval examined during the rounds labs reviewed medications reviewed denies any chest pain cough or sputum production so far workup of the syncope remains undiagnosed and undetermined, patient has been evaluated by interventional radiology given that patient has been on his aspirin biopsy has been canceled and rescheduled after one week likely patient will be discharged later on today for further workup and evaluation outpatient basis Objective - Vital Signs Vital signs: Vital Signs Temp 98 F 06/15/19 13:00 Pulse 50 L 06/15/19 13:00 Resp 16 06/15/19 13:00 BP 133/60 06/15/19 13:00 Pulse Ox 95 06/15/19 13:00 Intake & Output 06/14/19 06/15/19 06/15/19 18:59 06:59 18:59 Intake Total 800 400 480 Balance 800 400 480 Weight 47.627 kg 47.627 kg Intake: Intake, IV Titration 800 400 Amount Sodium Chloride 0.9% 1, 800 400 000 ml @ 100 mls/hr IV . Q10H STA Rx#:[id number] Oral 480 Other: Voiding Method Bedside Commode Toilet Toilet # Voids 1 2 - Exam - Constitutional General appearance: average body habitus, cooperative, disheveled, mild distress - EENT Eyes: EOMI, PERRLA, poor dentition, normal appearance ENT: normal oropharynx Ears: bilateral: normal - Neck Neck: normal ROM Carotids: bilateral: upstroke normal Thyroid: bilateral: normal size - Respiratory Respiratory: bilateral: CTA, rales (Dry Rales bilaterally) - Cardiovascular Rhythm: regular Heart sounds: normal: S1, S2 - Integumentary Integumentary: normal, normal turgor - Neurologic Neurologic: CNII-XII intact - Musculoskeletal Musculoskeletal: gait normal, generalized weakness, strength equal bilaterally - Psychiatric Psychiatric: A&O x's 3, appropriate affect, intact judgment & insight - Labs CBC & Chem 7: 06/13/19 17:50 06/13/19 17:50 Labs: Microbiology - Last 24 Hours (Table) 06/13/19 18:05 Urine Culture - Final Urine,Voided Assessment and Plan Assessment: 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
--- NOTE | 2019-06-16 20:04 | P.DS ---
Providers Date of admission: 06/13/19 20:00 Expected date of discharge: 06/16/19 Attending physician: Malik Acevedo Consults: 06/13/19 20:00 Consult Physician Routine Consulting Provider: Blanca Wong Consult Reason/Comments: syncope Do you want consulting provider notified?: Yes Consult Physician Urgent Consulting Provider: Bruce Hammer Consult Reason/Comments: [place] Do you want consulting provider notified?: Yes 06/14/19 08:28 Consult Physician Routine Consulting Provider: Valeriano Garcia Consult Reason/Comments: rul mass, need ct guided bx Do you want consulting provider notified?: Yes Primary care physician: Chris Grossman Hospital Course: Chief Complaint: Nearly passed out Hospital course: This is a 63-year-old patient of Dr. grossman from [place]. Chronic stable medical conditions include COPD, GERD, hypertension. Patient's had dizziness for many years. And states has been worked up by several consultants including Dr. Villalobos ENT essential tremor. No specific diagnosis been found. Yesterday while she was at the house doing some light work she felt lightheaded and dizzy and she nearly then passed out. Patient has a baseline slight cough. Has chronically decreased appetite. Has been gradually losing weight. Upon admission telemetry did not show any arrhythmia. There is no chest pain no palpitation. Patient is found to have a lung mass which pulmonary was consulted. Patient's and daughter by the bedside. Patient has not brought up any hemoptysis. Does get a bit short of breath. Patient is a long- standing smoker. Dr. Hammer from pulmonary who noted the CT-guided biopsy of the lung mass. But because patient has taken aspirin this has to wait for about a week. Patient denies any weakness in a particular side. No change in speech or vision. No seizure activity. Today-care was discussed at length with the patient and [id number] the bedside. Patient is to remain off aspirin. Outpatient lung biopsy of the mass by interventional radiology. This was discussed with Dr. Hammer. Questions were answered. Advised against smoking. No further changes as per cardio G. Discussion and discharge planning more than 35 minutes Consultation: Dr. Serafin Hammer from pulmonary Dr. VC Kamara from cardiology Physical examination: VITAL SIGNS: 98, 50, 16, 133/60, 95% room air GENERAL: , BMI 16.9 laying in bed. EYES: Pupils equal. Conjunctiva normal. HEENT: External appearance of nose and ears normal, oral cavity grossly normal. NECK: JVD not raised; masses not palpable. HEART: First and second heart sounds are normal; no edema. LUNGS: Respiratory rate increased, lungs diminished breath sounds. ABDOMEN: Soft, nontender, liver spleen not palpable, no masses palpable. PSYCH: Alert and oriented x3; mood and affect but anxiousl. MUSCULAR schedule: Evidence of OA especially in the hands and knees INVESTIGATIONS, reviewed in the clinical context: White count 19 lobe and 14.8 platelets 144 potassium 4 bun 26 creatinine 0.96 Troponin I 3 negative LDL 69 TSH 2.4 Computed tomography scan of brain-age related changes Chest x-ray film personally reviewed by me-shows hyperinflation and prominent interstitium Computed tomography scan of the abdomen and pelvis-numerous gallstones. No evidence of acute abdomen reported Computed tomography scan chest-pulmonary fibrosis, right upper lobe mass EKG tracing-normal sinus rhythm 2-D echo-EF 55-60%, severe mitral regurgitation, moderate tricuspid regurgitation Discharge diagnosis: -This is a patient who had a syncopal episode at home. There was no seizure- like activity. No chest pain no palpitation. Possibly vasovagal. -Right upper lung mass in a smoker. Due for needle biopsy. Have to wait for a week because patient had taken aspirin. -COPD in a current smoker -Severe mitral regurgitation, moderate tricuspid regurgitation, nonrheumatic -Chronic nicotine dependence patient is a cigarette smoker -Chronic pulmonary fibrosis -Severe protein calorie malnutrition. Patient is loss of subcu is tissue. Prominent bony eminence. BMI 16.9 -GERD -Essential hypertension -Primary osteoarthritis Disposition: Home Patient Condition at Discharge: Undetermined Plan - Discharge Summary Discharge Rx Participant: Yes New Discharge Prescriptions: New Metoprolol Tartrate [Lopressor] 25 mg PO BID #60 tab Continue Cholecalciferol [Vitamin D3 (25 Mcg = 1000 Iu)] 5,000 unit PO HS Discontinued Metoprolol Succinate [Toprol XL] 25 mg PO HS Meclizine [Antivert] 25 mg PO TID PRN PRN Reason: Vertigo Aspirin EC [Ecotrin Low Dose] 81 mg PO HS Discharge Medication List Cholecalciferol [Vitamin D3 (25 Mcg = 1000 Iu)] 5,000 unit PO HS 06/13/19 [History] Metoprolol Tartrate [Lopressor] 25 mg PO BID #60 tab 06/15/19 [Rx] Follow up Appointment(s)/Referral(s): Chris Grossman MD [Primary Care Provider] - 06/19/19 12:15 pm Bruce Hammer MD [STAFF PHYSICIAN] - 1 Week (Please call and make appointment office is closed.) Norman Hale MD [STAFF PHYSICIAN] - 06/29/19 10:45 am Patient Instructions/Handouts: Metoprolol (By mouth), Syncope (DC) Activity/Diet/Wound Care/Special Instructions: Right lung mass biopsy-interventional radiology as outpatient on 06-26-19 at 9:00am patient should continue aspirin through Tuesday06-18-19 No aspirin starting 06-19-19 until after biopsy on 06-26-19 Discharge Disposition: HOME SELF-CARE
== END 2019-06-15 15:36 | disposition home or self-care (01) ==
LOC: EC 16:43 → 3NMEDONC 20:00
PROVIDERS: ADMIT Hospitalist; ATTEND Hospitalist
DX: R55 Syncope and collapse (principal); M25.521 Pain in right elbow; M25.551 Pain in right hip; E86.0 Dehydration; R51 Headache; G25.0 Essential tremor; R11.2 Nausea with vomiting, unspecified; J43.9 Emphysema, unspecified; R91.1 Solitary pulmonary nodule; F17.210 Nicotine dependence, cigarettes, uncomplicated; D69.6 Thrombocytopenia, unspecified; I27.20 Pulmonary hypertension, unspecified; R91.8 Other nonspecific abnormal finding of lung field; I34.0 Nonrheumatic mitral (valve) insufficiency; I36.1 Nonrheumatic tricuspid (valve) insufficiency; I35.1 Nonrheumatic aortic (valve) insufficiency; J84.10 Pulmonary fibrosis, unspecified; E43 Unspecified severe protein-calorie malnutrition; Z68.1 Body mass index [BMI] 19.9 or less, adult; I25.2 Old myocardial infarction; M19.042 Primary osteoarthritis, left hand; M19.041 Primary osteoarthritis, right hand; M17.0 Bilateral primary osteoarthritis of knee; K21.9 Gastro-esophageal reflux disease without esophagitis; I10 Essential (primary) hypertension; Z79.82 Long term (current) use of aspirin; Z79.899 Other long term (current) drug therapy; Z90.49 Acquired absence of other specified parts of digestive tract; Z87.01 Personal history of pneumonia (recurrent); Z88.8 Allergy status to other drugs, medicaments and biological substances
CPT/HCPCS: 96376; 96372; 96374; 96375; 96361; 99285; 36415; 93005 ×2; 93306; 80061; 80053; 82550; 83605; 83735; 84100; 84443; 84484 ×2; 85025; 85610; 85730; 81001; 87086; 73502; 73080; 71046; 70450; 71275; 74177; G0378 ×3; J2060 ×2; J2270 ×2; J1650; Q9967

== ENCOUNTER 2019-06-26 07:37 | Day surgery (SDC) | payer MEDICARE ==
[2019-06-26 09:11] LABS: Mean Platelet Volume 7.4; Platelet Count 138 k/uL (150-450)
[2019-06-26 09:17] LABS: INR 0.9 (<1.2); Prothrombin Time 10.2 sec (9.0-12.0)
[2019-06-26] MEDS ORDERED: ALPRAZolam 0.25 MG TAB PO STA (09:37)
[2019-06-26 09:44] VITALS: TEMP 97.2
--- NOTE | 2019-06-26 11:12 | XR ---
EXAMINATION TYPE: XR chest 1V portable DATE OF EXAM: 06/26/2019 COMPARISON: 06/13/2019 HISTORY: Right lung biopsy TECHNIQUE: Single frontal view of the chest is obtained. FINDINGS: Diffuse interstitial pattern. Right upper lobe lung mass. No sizable pneumothorax. Heart s ize normal. Basilar subsegmental consolidation. Vague density in the left upper lobe. IMPRESSION: No pneumothorax post lung biopsy
[2019-06-26 11:55] VITALS: RESP 16
--- NOTE | 2019-06-26 13:06 | CT ---
EXAMINATION TYPE: CT biopsy lung RT DATE OF EXAM: 06/26/2019 COMPARISON: 06/13/2019 HISTORY: Right lung mass CT DLP: 805 mGycm The procedure is discussed with the patient, the risks, complications, benefits and alternatives, wer e discussed and any questions were answered. Informed consent was obtained. The patient is placed p elmo on the CT table, prepped and draped in the usual sterile fashion. Utilizing a 20-gauge core biopsy needle access into the right upper lobe mass was achieved with 2 pas ses performed. Pathology pending. All elements of maximal barrier and sterile technique were utiliz ed. The patient remained stable throughout the procedure with no immediate postprocedural complicati on. IMPRESSION: 1. Successful CT guided core biopsy of a right upper lobe lung mass
--- NOTE | 2019-06-26 13:26 | XR ---
EXAMINATION TYPE: XR chest 1V portable DATE OF EXAM: 06/26/2019 COMPARISON: X-ray dated 06/26/2019 HISTORY: Status post right-sided lung biopsy TECHNIQUE: Single frontal view of the chest is obtained. FINDINGS: Known right upper lobe nodule is again seen measuring 1.6 cm. Diffuse interstitial promine nce is chronic. Bibasilar atelectasis is horizontally oriented and platelike. Patchy opacity of the l eft upper lung laterally may represent an additional pulmonary nodule or atelectasis. No additional n odule was seen on the prior CT dated 06/13/2019. Fibrotic changes noted throughout the lungs. Cardiome diastinal silhouette is within normal limits. No acute osseous pathology. No postprocedural pneumotho rax. IMPRESSION: No postprocedural pneumothorax status post right upper lobe lung biopsy. Background pulm onary fibrosis and scattered areas of atelectasis are again noted.
[2019-06-26 13:50] VITALS: BP 147/71; PULSE 73
== END 2019-06-26 13:40 | disposition home or self-care (01) ==
LOC: RADPROMAIN 07:37
PROVIDERS: ATTEND Internal Medicine Sleep Medicine
DX: C34.91 Malignant neoplasm of unspecified part of right bronchus or lung (principal)
CPT/HCPCS: 36415; 71045; 77012; 85049; 85610; 88305; 88341; 88342

== ENCOUNTER → 2019-07-11 | Outpatient (CLI) | payer MEDICARE ==
--- NOTE | 2019-07-13 11:52 | MM ---
Reason for exam: screening (asymptomatic). Last mammogram was performed 1 year ago. Physical Findings: A clinical breast exam by your physician is recommended on an annual basis and results should be correlated with mammographic findings. MG 3D Screening Mammo W/Cad Bilateral CC and MLO view(s) were taken. Prior study comparison: July 10, 2018, bilateral MG 3d screening mammo w/cad. July 01, 2017, bilateral mammogram, performed at [facility]. The breast tissue is heterogeneously dense. This may lower the sensitivity of mammography. There is chronic nodularity in the right breast. There is no discrete abnormality. No significant changes when compared with prior studies. ASSESSMENT: Benign, BI-RAD 2 RECOMMENDATION: Routine screening mammogram of both breasts in 1 year.
== END ==
LOC: RADMAMWWP 06:52
PROVIDERS: ATTEND Obstetrics & Gynecology
DX: Z12.31 Encounter for screening mammogram for malignant neoplasm of breast (principal)
CPT/HCPCS: 77063; 77067

== ENCOUNTER → 2019-07-13 | Outpatient (CLI) | payer MEDICARE ==
--- NOTE | 2019-07-17 06:12 | PE ---
EXAMINATION TYPE: PET CT fusion skull to thigh DATE OF EXAM: 07/13/2019 COMPARISON: CTA chest June 13, 2019. CT abdomen and pelvis June 13, 2019. HISTORY: Lung cancer recently diagnosed right lung biopsy June 26, 2019. TECHNIQUE: Following the intravenous administration of 12.68 mCi of F-18 FDG, whole body images are performed from the skull base to the midthigh. Images are reviewed on the computer in the coronal, a xial, and sagittal planes. Reconstructed rotating images are created on independent workstation and reviewed on the computer. A noncontrast CT is performed in conjunction with the PET scan. SCAN: Initial Scan FINDINGS: SKULL BASE AND NECK: No areas of abnormal hypermetabolic uptake. CHEST, MEDIASTINUM, AND HILAR REGION: Background moderate emphysematous change with mild to moderate upper lung parenchymal scarring. Redemonstration of subpleural nodule or neoplasm right upper lobe ax ial image 90, max SUV is 8.61. No additional areas of suspicious nodules or hypermetabolic uptake in either lung. No suspicious thor acic adenopathy noted. ABDOMEN AND PELVIS: No areas of suspicious hypermetabolic uptake. No adrenal masses. OSSEOUS STRUCTURES: No areas of suspicious hypermetabolic uptake. OTHER CT: Nasal septum deviated to right of midline. Mild cardiomegaly redemonstrated. Prominent right and left pulmonary arteries suggest underlying pulm onary hypertension. Ascending aorta measures up to 3.9 cm in diameter axial image 107. Dependent small gallstones. Patient has very little intra-abdominal fat. IMPRESSION: Hypermetabolic uptake in biopsy proven malignant nodule right upper lobe. No suspicious a denopathy or metastatic malignancy noted. [id number] AJCC STAGING 1A
== END | disposition home or self-care (01) ==
LOC: RADPETMAIN 14:52
PROVIDERS: ATTEND Internal Medicine Sleep Medicine
DX: C34.11 Malignant neoplasm of upper lobe, right bronchus or lung (principal)
CPT/HCPCS: 78815; A9552

== ENCOUNTER → 2019-07-20 | Outpatient (CLI) | payer MEDICARE ==
--- NOTE | 2019-07-20 09:07 | MR ---
EXAMINATION TYPE: MR brain wo/w con DATE OF EXAM: 07/20/2019 COMPARISON: I MRI brain July 05, 2016 HISTORY: Newly diagnosed lung cancer, Headache TECHNIQUE: Multiplanar, multisequence images of the brain and brainstem is performed without and with IV contras t, utilizing 4.5 mL intravenous Gadavist . FINDINGS: Diffusion weighted images demonstrate no evidence of a recent infarct or other diffusion ab normality. There is no worrisome extra-axial fluid collection. Mild ventricular and sulcal prominenc e. Some small scattered foci of T2 hyperintensity throughout the white matter bilaterally. Midline structures demonstrate normal morphology. The craniocervical junction appears within normal limits. Post contrast images demonstrate no abnormal enhancement. The dural venous sinuses appear pa tent. The visualized sinuses are clear and the globes are intact. Nasal septum is deviated to right o f midline. IMPRESSION: Mild diffuse cerebral atrophy and chronic small vessel ischemic changes redemonstrated. N o suspicious enhancement or enhancing masses to suggest metastatic disease to the brain.
== END ==
LOC: RADMRIMAIN 08:03
PROVIDERS: ATTEND Internal Medicine Hematology & Oncology
DX: C34.91 Malignant neoplasm of unspecified part of right bronchus or lung (principal); G31.9 Degenerative disease of nervous system, unspecified; I67.82 Cerebral ischemia
CPT/HCPCS: 70553; A9585

== ENCOUNTER → 2019-09-13 | Outpatient (CLI) | payer MEDICARE ==
[2019-09-13 06:40] LABS: African American GFR (CKD) >90 (>60 ml/min/1.73 sqM); Blood Urea Nitrogen 22 mg/dL (7-17); Non-African American GFR(CKD) 79 (>60 ml/min/1.73 sqM)
--- NOTE | 2019-09-13 09:03 | CT ---
EXAMINATION TYPE: CT chest w con DATE OF EXAM: 09/13/2019 COMPARISON: 07/13/2019 and 06/13/2019 HISTORY: 64-year-old female Lung cancer, observe for mets TECHNIQUE: Contiguous axial scanning of the chest after the administration of 100 ml mL of Isovue 300 . Coronal/sagittal reconstructions performed. CT DLP: 286mGycm. Automatic exposure control utilized for a dose reduction. FINDINGS: Heart upper limits of normal in size without pericardial effusion. Ascending aorta ectatic and 3.9 cm. Upper descending thoracic aorta is ectatic at 3.0 cm. Conventiona l arch was a branching anatomy with mild atherosclerotic plaque. Hypertrophied bronchial arteries inc identally noted. Borderline caliber to the main right and the pulmonary arteries measuring up to 2.5 cm suggest underl susie pulmonary hypertension. Stable 7 mm AP window lymph node. No thoracic lymphadenopathy by CT size criteria. Biapical pleural-parenchymal scarring. Moderate centrilobular emphysema. Scattered subpleural microcy stic change and interstitial groundglass. 5 mm peripheral left upper lobe pulmonary nodule, axial image 29 is unchanged. Peripheral right upper lobe nodule, known neoplasm, measures 1.1 cm currently versus up to 2.2 cm pre viously. A couple tiny 3 mm anterior right midlung pulmonary nodules are unchanged. No new or enlarging pulmon lucio nodules. Visualized upper abdomen shows stable 3.8 cm cyst within the right kidney. Slight nodular thickening of the left adrenal gland is unchanged. Bones: No osseous destructive process. IMPRESSION: 1. COPD with moderate emphysema. Some additional scattered interstitial fibrosis. Possible underlying pulmonary arterial hypertension. 2. Decreasing size of the known right upper lobe neoplasm currently measuring 1.1 cm versus 2.2 cm, p reviously. 3. A few scattered 5 mm and smaller pulmonary nodules remain unchanged back to 06/13/2019. No new or e nlarging pulmonary nodules.
== END | disposition home or self-care (01) ==
LOC: RADCTMAIN 06:01
PROVIDERS: ATTEND Internal Medicine Hematology & Oncology
DX: Z03.89 Encounter for observation for other suspected diseases and conditions ruled out (principal); C34.91 Malignant neoplasm of unspecified part of right bronchus or lung; J43.9 Emphysema, unspecified; J84.10 Pulmonary fibrosis, unspecified; Z92.21 Personal history of antineoplastic chemotherapy; Z88.8 Allergy status to other drugs, medicaments and biological substances
CPT/HCPCS: 82565; 84520; 71260; 36415; Q9967

== ENCOUNTER → 2019-10-30 | Outpatient (CLI) | payer MEDICARE ==
--- NOTE | 2019-10-30 16:28 | CT ---
EXAMINATION TYPE: CT chest w con DATE OF EXAM: 10/30/2019 COMPARISON: Prior CT 09/13/2019 HISTORY: f/u lung ca CT DLP: 113.7 mGycm Automated exposure control for dose reduction was used. CONTRAST: CT scan of the chest is performed with IV Contrast, patient injected with 100 mL of Isovue 300. FINDINGS: LUNGS: The spiculated nodule in the right upper lobe on axial image #22 shows pleural extension as on prior measures approximately 11 mm similar to prior exam. There are interstitial changes, emphysemat ous changes similar to prior exam. Subpleural nodular focus in the left upper lobe may be postinflamm atory and is unchanged. There is no pleural effusion or pneumothorax seen. The tracheobronchial tree is patent. MEDIASTINUM: There are no greater than 1 cm hilar or mediastinal lymph nodes. No pericardial effusi on is seen. AORTA: No additional significant abnormality is seen. OTHER: Large cortical cyst at the upper pole the right kidney again noted. No evident adrenal mass.. IMPRESSION: Essentially stable exam.
== END | disposition home or self-care (01) ==
LOC: RADCTMAIN 14:18
PROVIDERS: ATTEND Internal Medicine Hematology & Oncology
DX: Z03.89 Encounter for observation for other suspected diseases and conditions ruled out (principal); C34.91 Malignant neoplasm of unspecified part of right bronchus or lung; Z88.8 Allergy status to other drugs, medicaments and biological substances
CPT/HCPCS: 82565; 84520; 71260; 36415; Q9967

== ENCOUNTER → 2020-01-22 | Outpatient (CLI) | payer MEDICARE ==
--- NOTE | 2020-01-22 10:17 | CT ---
EXAMINATION TYPE: CT chest w con DATE OF EXAM: 01/22/2020 COMPARISON: Prior chest CT October 30, 2019 and older studies. Prior PET/CT July 13, 2019. HISTORY: Malignant neoplasm of unspecified part of lung, small cell lung cancer completed chemotherap y and radiation treatment June 2019. CT DLP: 116.80 mGycm. Automated Exposure Control for Dose Reduction was Utilized. TECHNIQUE: CT scan of the thorax is performed following with IV Contrast, patient injected with 100 ml mL of Isovue 300. FINDINGS: LUNGS: Background moderate underlying emphysematous change with moderate biapical pleural/parenchymal scarring is redemonstrated. Residual peripheral right upper lobe nodule or neoplasm measuring 8 x 8 mm axial image 22 by my measurements fairly stable from most recent CT, diminished in size from PET/C T. Scattered mild to moderate linear scarring in the mid to lower lungs greatest near diaphragms is r edemonstrated. MEDIASTINUM: There are no new greater than 1 cm hilar or mediastinal lymph nodes. No cardiomegaly or pericardial effusion is seen. Prominent right and left pulmonary arteries identified, CT finding suggestive of underlying pulmonary artery hypertension OTHER: Persistent 3.4 cm thin-walled cyst posteriorly upper pole of the right kidney. IMPRESSION: Overall stable findings, stable peripheral 8 mm nodule or neoplasm in the right upper lob e. No new suspicious nodules or adenopathy.
== END | disposition home or self-care (01) ==
LOC: RADCTMAIN 08:21
PROVIDERS: ATTEND Internal Medicine Hematology & Oncology
DX: C34.91 Malignant neoplasm of unspecified part of right bronchus or lung (principal); Z87.891 Personal history of nicotine dependence; Z91.09 Other allergy status, other than to drugs and biological substances
CPT/HCPCS: 82565; 84520; 71260; 36415; Q9967

== ENCOUNTER → 2020-07-08 | Outpatient (CLI) | payer MEDICARE ==
--- NOTE | 2020-07-08 13:02 | CT ---
EXAMINATION TYPE: CT chest w con DATE OF EXAM: 07/08/2020 COMPARISON: Prior CT chest 01/22/2020 HISTORY: Lung ca CT DLP: 114.6 mGycm Automated exposure control for dose reduction was used. CONTRAST: CT scan of the chest is performed with IV Contrast, patient injected with 80 mL of Isovue 300. FINDINGS: LUNGS: The lungs show some slight interval change. Right upper lobe scarring with some local pleural thickening is somewhat more conspicuous, axial image #23 and 24 posterior laterally. Interstitial anju nges are again noted bilaterally. There is no pleural effusion or pneumothorax seen. The tracheobron chial tree is patent. MEDIASTINUM: There are no greater than 1 cm hilar or mediastinal lymph nodes. No pericardial effusi on is seen. AORTA: No additional significant abnormality is seen. OTHER: No additional significant abnormality is seen. IMPRESSION: Some slight interval increase in pleural thickening in the right upper lobe. Follow-up m ay be of benefit to assess for stability or change. Consider PET CT as indicated.
== END | disposition home or self-care (01) ==
LOC: RADCTMAIN 09:44
PROVIDERS: ATTEND Internal Medicine Hematology & Oncology
DX: J92.9 Pleural plaque without asbestos (principal); C34.91 Malignant neoplasm of unspecified part of right bronchus or lung; Z91.048 Other nonmedicinal substance allergy status; Z88.8 Allergy status to other drugs, medicaments and biological substances
CPT/HCPCS: 82565; 84520; 71260; 36415; Q9967

== ENCOUNTER → 2020-10-29 | Outpatient (CLI) | payer MEDICARE ==
--- NOTE | 2020-10-29 13:52 | XR ---
EXAMINATION TYPE: XR ribs RT DATE OF EXAM: 10/29/2020 CLINICAL HISTORY: Pain, Fall Four views of the ribs fail demonstrate evidence for displaced rib fracture or secondary sign of rib fracture. Visualized lungs are clear. No evidence for pneumothorax. Nodular density right upper lob e unchanged from prior study. IMPRESSION: 1. No displaced rib fractures seen. ICD 10 NO FRACTURE, INITIAL EVALUATION
== END | disposition home or self-care (01) ==
LOC: RADXRMAIN 13:03
PROVIDERS: ATTEND Family Medicine
DX: R07.81 Pleurodynia (principal)

== ENCOUNTER 2020-11-01 08:16 | Emergency (ER) | payer MEDICARE ==
[2020-11-01 08:23] VITALS: RESP 16; TEMP 98.3
[2020-11-01] MEDS ORDERED: KETOROLAC 15 MG/ML 1 ML VIAL IVP STA (08:36)
[2020-11-01] MEDS ORDERED: HYDROmorphone 0.5 MG/0.5 ML SYRINGE IVP STA (09:01)
--- NOTE | 2020-11-01 09:01 | ED ---
General Adult HPI - General Chief complaint: Chest Pain Stated complaint: SOB, fall, shoulder pain Time Seen by Provider: 11/01/20 08:20 Source: patient, RN notes reviewed, old records reviewed Mode of arrival: wheelchair Limitations: no limitations - History of Present Illness Initial comments: This is a 65-year-old female who presents emergency Department complaining of right sided chest pain and pain in her back. Patient states the other day she slipped on some snow and did not fall but she lifted her hand above her head real quickly and felt pain in her upper posterior back patient states it hurts worse with deep breathing. Patient states it hurts with movement of her left shoulder. Patient denies any fever chills or cough. Patient denies any anterior chest pain while at rest. Patient states it only occurs when she is moving her arm or taking a deep breath. Denies any abdominal pain patient denies nausea vomiting diarrhea. - Related Data Home Medications Medication Instructions Recorded Confirmed Cholecalciferol [Vitamin D3 (25 5,000 unit PO HS 06/13/19 10/24/19 Mcg = 1000 Iu)] Aspirin [Adult Low Dose Aspirin EC] 81 mg PO DAILY 06/20/19 10/24/19 Meclizine [Antivert] 12.5 mg PO Q8HR PRN 06/20/19 10/24/19 Naproxen Sodium [Aleve] 220 mg PO BID PRN 06/20/19 10/24/19 Ondansetron [Zofran] 4 mg PO Q4HR PRN 06/20/19 10/24/19 Vit C/E/Zn/Coppr/Lutein/Zeaxan 1 each PO BID 06/20/19 10/24/19 [Preservision Areds 2 Softgel] ALPRAZolam [Xanax] 0.25 mg PO DAILY PRN 10/24/19 10/24/19 Previous Rx's Medication Instructions Recorded Metoprolol Tartrate [Lopressor] 25 mg PO BID #60 tab 06/15/19 Allergies Allergy/AdvReac Type Severity Reaction Status Date / Time nicotine Allergy Rash/Hives Verified 11/01/20 08:19 varenicline [From Chantix] Allergy Rash/Hives Verified 11/01/20 08:19 Review of Systems ROS Statement: Those systems with pertinent positive or pertinent negative responses have been documented in the HPI. ROS Other: All systems not noted in ROS Statement are negative. 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 Small cell lung cancer History of Any Multi-Drug Resistant Organisms: None Reported Past Surgical History: Appendectomy, Hysterectomy, Orthopedic Surgery Additional Past Surgical History / Comment(s): Right knee scope. Lung biopsy Past Anesthesia/Blood Transfusion Reactions: Postoperative Nausea & Vomiting (PONV) Past Psychological History: No Psychological Hx Reported Smoking Status: Former smoker Past Alcohol Use History: None Reported Past Drug Use History: None Reported - Past Family History Mother Family Medical History: Cancer Additional Family Medical History / Comment(s): stomach Father Family Medical History: Coronary Artery Disease (CAD) General Exam - General Exam Comments Initial Comments: GENERAL: Patient is well-developed and well-nourished. Patient is nontoxic and well- hydrated and is in no acute distress. ENT: Neck is soft and supple. No significant lymphadenopathy is noted. Oropharynx is clear. Moist mucous membranes. Neck has full range of motion without eliciting any pain. EYES: The sclera were anicteric and conjunctiva were pink and moist. Extraocular movements were intact and pupils were equal round and reactive to light. Eyelids were unremarkable. PULMONARY: Unlabored respirations. Good breath sounds bilaterally. No audible rales rhonchi or wheezing was noted. CARDIOVASCULAR There is a regular rate and rhythm without any murmurs gallops or rubs. Chest wall is tender from pressing anteriorly or posteriorly near the scapula. ABDOMEN: Soft and nontender with normal bowel sounds. SKIN: Skin is clear with no lesions or rashes and otherwise unremarkable. NEUROLOGIC: Patient is alert and oriented x3. Cranial nerves II through XII are grossly intact. Motor and sensory are also intact. Normal speech, volume and content. Symmetrical smile. MUSCULOSKELETAL: Normal extremities with adequate strength and full range of motion. No lower extremity swelling or edema. No calf tenderness. LYMPHATICS: No significant lymphadenopathy is noted PSYCHIATRIC: Normal psychiatric evaluation. Limitations: no limitations Course Vital Signs 11/01/20 11/01/20 08:19 08:32 Temperature 98.3 F Pulse Rate 59 L Respiratory 16 16 Rate Blood Pressure 157/85 O2 Sat by Pulse 99 Oximetry Medical Decision Making - Medical Decision Making EKG shows sinus bradycardia at a beats per minute AL interval 112 QRS is 84 QT interval 446 QTC is 426 per patient's EKG shows no acute ST segment elevation. I compared this EKG to an old EKG there are no acute changes noted. Chest x-ray shows no pneumothorax there is some sick are ringing and there are 2 rib fractures. Disposition Clinical Impression: Ribs, multiple fractures Disposition: HOME SELF-CARE Condition: Good Instructions (If sedation given, give patient instructions): Rib Fracture (ED) Additional Instructions: Patient should continue taking Naprosyn. Patient should add Tylenol for pain as well. Is patient prescribed a controlled substance at d/c from ED?: No Referrals: Chris Grossman MD [Primary Care Provider] - 1-2 days Time of Disposition: 09:02
[2020-11-01] MEDS ORDERED: ACET/COD 300 MG/30 MG STARTER PACK 6 TAB BTL PO STA (09:02)
--- NOTE | 2020-11-01 09:13 | XR ---
EXAMINATION TYPE: XR chest 2V DATE OF EXAM: 11/01/2020 COMPARISON: 06/26/2019 HISTORY: Shortness of breath TECHNIQUE: Frontal and lateral views of the chest are obtained. FINDINGS: Scattered senescent parenchymal changes noted. Hyperinflation compatible with COPD. Chronic density right upper lobe at the site of prior nodule. Heart size is stable. Mediastinal structures are stable and grossly unremarkable. No evidence for hilar prominence. Offset involving lateral right ribs 4 and 5. No evidence for pneumothorax. IMPRESSION: 1. Chronic density right upper lobe at the site of prior nodule. 2. Offset involving lateral right ribs 4 and 5. No evidence for pneumothorax.
[2020-11-01 09:14] VITALS: BP 131/61; PULSE 67
== END 2020-11-01 09:40 | disposition home or self-care (01) ==
LOC: EC 08:16
DX: S22.49XA Multiple fractures of ribs, unspecified side, initial encounter for closed fracture (principal); R00.1 Bradycardia, unspecified; Z79.899 Other long term (current) drug therapy; Z79.82 Long term (current) use of aspirin; Z88.8 Allergy status to other drugs, medicaments and biological substances; Z85.118 Personal history of other malignant neoplasm of bronchus and lung; Z87.891 Personal history of nicotine dependence; X58.XXXA Exposure to other specified factors, initial encounter
CPT/HCPCS: 71046; 93005; 96374; 96375; 99285

== ENCOUNTER 2020-11-28 09:47 | Emergency (ER) | payer MEDICARE ==
[2020-11-28] MEDS ORDERED: SODIUM CHLORIDE 0.9% 1,000 ML IV STA (10:18)
[2020-11-28] MEDS ORDERED: MECLIZINE 25 MG TAB PO STA (10:19)
[2020-11-28] MEDS ORDERED: ONDANSETRON 4 MG/2 ML VIAL IVP STA (10:20)
--- NOTE | 2020-11-28 10:26 | ED ---
General Adult HPI - General Chief complaint: Dizziness Stated complaint: Dizziness, vomiting, dehydration Time Seen by Provider: 11/28/20 09:55 Source: patient, family, RN notes reviewed, old records reviewed Mode of arrival: wheelchair Limitations: no limitations - History of Present Illness Initial comments: This is a 65-year-old female presents emergency department with past medical history significant for lung cancer and COPD. Patient comes in today because she states she's been dizzy for the last few days. Patient states movement definitely makes it worse. Patient states this is typical of the vertical she's had in the past. Patient states she's very nauseated has vomited anything she tries to eat. Patient states she feels so she's very dehydrated. Patient states she has headache but she always has a headache and this is no worse than normal. Patient denies any numbness weakness. Patient denies any syncopal or near syncopal episode. Patient denies any chest pain or palpitation. Patient denies shortness of breath. Patient states she does have a cough however. Patient denies any abdominal pain. Patient denies any diarrhea. - Related Data Home Medications Medication Instructions Recorded Confirmed Cholecalciferol [Vitamin D3 (25 5,000 unit PO DAILY 06/13/19 11/28/20 Mcg = 1000 Iu)] Aspirin [Adult Low Dose Aspirin EC] 81 mg PO DAILY 06/20/19 11/28/20 Ondansetron [Zofran] 4 mg PO Q4HR PRN 06/20/19 11/28/20 ALPRAZolam [Xanax] 1 mg PO TID PRN 11/28/20 11/28/20 Lutein 20 mg PO DAILY 11/28/20 11/28/20 Meclizine [Antivert] 25 mg PO TID PRN 11/28/20 11/28/20 Previous Rx's Medication Instructions Recorded Metoprolol Tartrate [Lopressor] 25 mg PO BID #60 tab 06/15/19 Meclizine [Antivert] 25 mg PO TID #20 tab 11/28/20 Allergies Allergy/AdvReac Type Severity Reaction Status Date / Time nicotine Allergy Rash/Hives Verified 11/28/20 10:57 varenicline [From Chantix] Allergy Rash/Hives Verified 11/28/20 10:57 Review of Systems ROS Statement: Those systems with pertinent positive or pertinent negative responses have been documented in the HPI. ROS Other: All systems not noted in ROS Statement are negative. 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 Small cell lung cancer History of Any Multi-Drug Resistant Organisms: None Reported Past Surgical History: Appendectomy, Hysterectomy, Orthopedic Surgery Additional Past Surgical History / Comment(s): Right knee scope. Lung biopsy Past Anesthesia/Blood Transfusion Reactions: Postoperative Nausea & Vomiting (PONV) Past Psychological History: No Psychological Hx Reported Smoking Status: Former smoker Past Alcohol Use History: None Reported Past Drug Use History: None Reported - Past Family History Mother Family Medical History: Cancer Additional Family Medical History / Comment(s): stomach Father Family Medical History: Coronary Artery Disease (CAD) General Exam - General Exam Comments Initial Comments: GENERAL: Patient is well-developed and well-nourished. Patient is nontoxic and well- hydrated and is in mild distress. ENT: Neck is soft and supple. No significant lymphadenopathy is noted. Oropharynx is clear. Moist mucous membranes. Neck has full range of motion without eliciting any pain. EYES: The sclera were anicteric and conjunctiva were pink and moist. Extraocular movements were intact and pupils were equal round and reactive to light. Eyelid s were unremarkable. PULMONARY: Unlabored respirations. Good breath sounds bilaterally. No audible rales rhonchi or wheezing was noted. CARDIOVASCULAR: Patient is bradycardic at about 55 beats a minute ABDOMEN: Soft and nontender with normal bowel sounds. SKIN: Skin is clear with no lesions or rashes and otherwise unremarkable. NEUROLOGIC: Patient is alert and oriented x3. Cranial nerves II through XII are grossly intact. Motor and sensory are also intact. Normal speech, volume and content. Symmetrical smile. MUSCULOSKELETAL: Normal extremities with adequate strength and full range of motion. No lower extremity swelling or edema. No calf tenderness. LYMPHATICS: No significant lymphadenopathy is noted PSYCHIATRIC: Normal psychiatric evaluation. Limitations: no limitations Course Vital Signs 11/28/20 11/28/20 11/28/20 09:52 10:36 10:47 Temperature 98.1 F 100.4 F H Pulse Rate 57 L 54 L 49 L Respiratory 18 16 16 Rate Blood Pressure 144/63 154/59 O2 Sat by Pulse 97 97 Oximetry Medical Decision Making - Medical Decision Making EKG shows sinus bradycardia 54 bpm [place] interval is on a 34 QRS is 86 QT interval 472 QTC is 447. Patient's EKG shows no ST segment elevation or depression. Chest x-ray shows no acute abnormality. CT of the brain shows no acute abnormality. Patient was given Antivert fluids and Zofran was feeling considerably better. Patient was coded positive. Patient qualified for monoclonal antibodies and patient was given monoclonal antibodies. - Lab Data Result diagrams: 11/28/20 10:15 11/28/20 10:15 Lab Results 11/28/20 11/28/20 11/28/20 Range/Units 10:15 10:15 10:15 WBC 4.1 (3.8-10.6) k/uL RBC 4.42 (3.80-5.40) m/uL Hgb 14.4 (11.4-16.0) gm/dL Hct 42.6 (34.0-46.0) % MCV 96.5 (80.0-100.0) fL MCH 32.5 (25.0-35.0) pg MCHC 33.7 (31.0-37.0) g/dL RDW 13.3 (11.5-15.5) % Plt Count 92 L (150-450) k/uL MPV 8.9 Neutrophils % 74 % Lymphocytes % 16 % Monocytes % 9 % Eosinophils % 1 % Basophils % 0 % Neutrophils # 3.0 (1.3-7.7) k/uL Lymphocytes # 0.6 L (1.0-4.8) k/uL Monocytes # 0.3 (0-1.0) k/uL Eosinophils # 0.0 (0-0.7) k/uL Basophils # 0.0 (0-0.2) k/uL Manual Slide Review Performed RBC Morphology Normal PT 10.2 (9.0-12.0) sec INR 0.9 (<1.2) APTT 22.1 (22.0-30.0) sec Sodium 135 L (137-145) mmol/L Potassium 4.1 (3.5-5.1) mmol/L Chloride 102 (98-107) mmol/L Carbon Dioxide 25 (22-30) mmol/L Anion Gap 8 mmol/L BUN 16 (7-17) mg/dL Creatinine 0.82 (0.52-1.04) mg/dL Est GFR (CKD-EPI)AfAm 86 (>60 ml/min/1.73 sqM) Est GFR (CKD-EPI)NonAf 74 (>60 ml/min/1.73 sqM) Glucose 124 H (74-99) mg/dL Calcium 9.2 (8.4-10.2) mg/dL Magnesium 1.7 (1.6-2.3) mg/dL Total Bilirubin 0.8 (0.2-1.3) mg/dL AST 31 (14-36) U/L ALT 16 (4-34) U/L Alkaline Phosphatase 77 (38-126) U/L Troponin I (0.000-0.034) ng/mL Total Protein 6.7 (6.3-8.2) g/dL Albumin 4.0 (3.5-5.0) g/dL Coronavirus (PCR) (Not Detectd) 11/28/20 11/28/20 Range/Units 10:15 10:15 WBC (3.8-10.6) k/uL RBC (3.80-5.40) m/uL Hgb (11.4-16.0) gm/dL Hct (34.0-46.0) % MCV (80.0-100.0) fL MCH (25.0-35.0) pg MCHC (31.0-37.0) g/dL RDW (11.5-15.5) % Plt Count (150-450) k/uL MPV Neutrophils % % Lymphocytes % % Monocytes % % Eosinophils % % Basophils % % Neutrophils # (1.3-7.7) k/uL Lymphocytes # (1.0-4.8) k/uL Monocytes # (0-1.0) k/uL Eosinophils # (0-0.7) k/uL Basophils # (0-0.2) k/uL Manual Slide Review RBC Morphology PT (9.0-12.0) sec INR (<1.2) APTT (22.0-30.0) sec Sodium (137-145) mmol/L Potassium (3.5-5.1) mmol/L Chloride (98-107) mmol/L Carbon Dioxide (22-30) mmol/L Anion Gap mmol/L BUN (7-17) mg/dL Creatinine (0.52-1.04) mg/dL Est GFR (CKD-EPI)AfAm (>60 ml/min/1.73 sqM) Est GFR (CKD-EPI)NonAf (>60 ml/min/1.73 sqM) Glucose (74-99) mg/dL Calcium (8.4-10.2) mg/dL Magnesium (1.6-2.3) mg/dL Total Bilirubin (0.2-1.3) mg/dL AST (14-36) U/L ALT (4-34) U/L Alkaline Phosphatase (38-126) U/L Troponin I <0.012 (0.000-0.034) ng/mL Total Protein (6.3-8.2) g/dL Albumin (3.5-5.0) g/dL Coronavirus (PCR) Detected A (Not Detectd) Disposition Clinical Impression: Vertigo, COVID-19, Dehydration Disposition: HOME SELF-CARE Condition: Good Instructions (If sedation given, give patient instructions): Coronavirus Disease 2019 (COVID-19) Additional Instructions: Patient should return to the emergency department if she is having any difficult y breathing Prescriptions: Meclizine [Antivert] 25 mg PO TID #20 tab Is patient prescribed a controlled substance at d/c from ED?: No Referrals: Chris Grossman MD [Primary Care Provider] - 1-2 days Time of Disposition: 12:09
[2020-11-28] MEDS ORDERED: ACETAMINOPHEN TAB 500 MG TAB PO STA (10:34)
[2020-11-28 10:44] LABS: Basophils % (A) 0 %; Eosinophils % (A) 1 %; HCT 42.6 % (34.0-46.0); HGB 14.4 gm/dL (11.4-16.0); Lymphocytes # (A) 0.6 k/uL (1.0-4.8); Lymphocytes % (A) 16 %; MCH 32.5 pg (25.0-35.0); MCHC 33.7 g/dL (31.0-37.0); MCV 96.5 fL (80.0-100.0); Mean Platelet Volume 8.9; Monocytes # (A) 0.3 k/uL (0-1.0); Monocytes % (A) 9 %; Neutrophils % (A) 74 %; RBC 4.42 m/uL (3.80-5.40); RDW 13.3 % (11.5-15.5); WBC 4.1 k/uL (3.8-10.6)
[2020-11-28 10:53] LABS: Calcium 9.2 mg/dL (8.4-10.2); Magnesium 1.7 mg/dL (1.6-2.3); Potassium 4.1 mmol/L (3.5-5.1); Total Bilirubin 0.8 mg/dL (0.2-1.3); Total Protein 6.7 g/dL (6.3-8.2)
[2020-11-28 10:56] LABS: INR 0.9 (<1.2); Partial Thromboplastin Time 22.1 sec (22.0-30.0); Prothrombin Time 10.2 sec (9.0-12.0)
[2020-11-28 11:17] LABS: Platelet Count 92 k/uL (150-450)
--- NOTE | 2020-11-28 11:19 | CT ---
EXAMINATION TYPE: CT brain wo con DATE OF EXAM: 11/28/2020 HISTORY: Headache. History of lung cancer. CT DLP: 1040.4 mGycm. Automated Exposure Control for Dose Reduction was Utilized. TECHNIQUE: CT scan of the head is performed without contrast. COMPARISON: CT brain June 13, 2019. FINDINGS: There is no acute intracranial hemorrhage or midline shift identified. Ventricles and sul ci within normal limits in size for patient's age. Hill-white matter differentiation is maintained. The calvarium is intact. Nasal septum is deviated to right of midline. IMPRESSION: No acute intracranial hemorrhage or midline shift. No significant change from prior.
--- NOTE | 2020-11-28 11:21 | XR ---
EXAMINATION TYPE: XR chest 2V DATE OF EXAM: 11/28/2020 COMPARISON: Chest x-ray November 01, 2020 and older studies. HISTORY: Dizziness and weakness. TECHNIQUE: Frontal and lateral views of the chest are obtained. FINDINGS: There are chronic parenchymal changes bilaterally redemonstrated. Persistent right lateral upper lung scar like mass or scarring. This should be correlated clinically as there is been interval blade changer 2020 CT exam. No significant change from most recent x-ray. There is no new suspicious f ocal air space opacity, pleural effusion, or pneumothorax seen. The cardiac silhouette size remains within normal limits. The osseous structures are intact. IMPRESSION: Chronic changes without acute pulmonary process.
[2020-11-28] MEDS ORDERED: BAMLANIVIMAB 700 MG in SODIUM CHLORIDE 0.9% 50 ML IVPB ONE (13:00)
[2020-11-28 15:13] VITALS: BP 141/62; PULSE 63; RESP 16; TEMP 98.4
== END 2020-11-28 15:17 | disposition home or self-care (01) ==
LOC: EC 09:47
DX: U07.1 COVID-19 (principal); E86.0 Dehydration; R00.1 Bradycardia, unspecified; K21.9 Gastro-esophageal reflux disease without esophagitis; I10 Essential (primary) hypertension; Z79.82 Long term (current) use of aspirin; Z79.899 Other long term (current) drug therapy; Z87.891 Personal history of nicotine dependence; Z90.49 Acquired absence of other specified parts of digestive tract; Z90.710 Acquired absence of both cervix and uterus; Z85.118 Personal history of other malignant neoplasm of bronchus and lung; Z88.8 Allergy status to other drugs, medicaments and biological substances; Z80.0 Family history of malignant neoplasm of digestive organs
CPT/HCPCS: 36415; 93005; 80053; 83735; 84484; 85025; 85610; 85730; 87040; 87635; 71046; 70450; 99285; 96365; 96375; 96361; J2405; Q0239

== ENCOUNTER → 2021-01-06 | Outpatient (CLI) | payer MEDICARE ==
--- NOTE | 2021-01-06 10:15 | CT ---
EXAMINATION TYPE: CT chest w con DATE OF EXAM: 01/06/2021 COMPARISON: 07/08/2020 HISTORY: Small cell lung CA CT DLP: 110.0 mGycm Automated exposure control for dose reduction was used. CONTRAST: CT scan of the chest is performed with IV Contrast, patient injected with 100 mL of Isovue 300. FINDINGS: LUNGS: Focal pleural thickening persists right upper lobe posterior laterally without significant int erval change. There is irregularity of the adjacent ribs 4 and 5 may reflect recent traumatic fractur e although Underlying pathologic fractures are not excluded. There is underlying emphysematous change . Mild subpleural fibrosis is seen scattered throughout. Stable 4 mm nodule left upper lobe image 26. MEDIASTINUM: There are no greater than 1 cm hilar or mediastinal lymph nodes. No pericardial effusi on is seen. Thoracic aorta is ectatic without evidence for aneurysm. The heart is mildly enlarged. UPPER ABDOMEN: No significant abnormality appreciated. OTHER: No additional significant abnormality is seen. IMPRESSION: 1. Persistent right upper lobe pleural thickening and/or scarring at the site of prior surgical inter vention. As noted adjacent ribs 4 and 5 demonstrate irregularity which may reflect recent traumatic f racture although underlying pathologic fracture is not excluded. 2. Scattered subpleural fibrosis with underlying COPD.
== END | disposition home or self-care (01) ==
LOC: RADCTMAIN 08:11
PROVIDERS: ATTEND Internal Medicine Hematology & Oncology
DX: C34.90 Malignant neoplasm of unspecified part of unspecified bronchus or lung (principal)
CPT/HCPCS: 82565; 84520; 71260; 36415; Q9967

== ENCOUNTER → 2021-07-13 | Outpatient (CLI) | payer MEDICARE ==
[2021-07-13 13:41] LABS: African American GFR (CKD) >90 (>60 ml/min/1.73 sqM); Blood Urea Nitrogen 20 mg/dL (7-17); Non-African American GFR(CKD) 87 (>60 ml/min/1.73 sqM)
--- NOTE | 2021-07-14 10:29 | CT ---
EXAMINATION TYPE: CT chest w con DATE OF EXAM: 07/13/2021 COMPARISON: 01/06/2021 HISTORY: 66-year-old female C34.91, lung cancer TECHNIQUE: Contiguous axial scanning of the chest after the administration of 100 mL of Isovue 300. Coronal/sagittal reconstructions performed. CT DLP: 179.7 mGycm. Automatic exposure control utilized for a dose reduction. FINDINGS: Heart normal size without pericardial effusion. 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 Ectasia upper descending thoracic aorta 3.1 cm. Co nventional arch vessel branching anatomy. Borderline to mildly enlarged caliber to the main right and left pulmonary artery segment 2.5 and 2.7 cm, respectively, suggesting underlying pulmonary arterial hypertension. Moderate emphysema. Scattered interstitial fibrosis. Focal pleural-based thickening along the right upper lobe is redemonstrated. Slight increased nodular ity along the inferior margin of thickening measuring 9 mm. Biapical pleural parenchymal scarring. No consolidation or pleural effusion. 4 mm peripheral left upper lobe pulmonary nodule, axial image 26 is unchanged. 3.3 cm cyst laterally. Visualized upper abdomen otherwise shows no gross abnormality. Bones: No osseous destructive process. IMPRESSION: 1. COPD with moderate emphysema and interstitial fibrosis. Pulmonary arterial hypertension. 2. Focal pleural based thickening lateral right upper lobe redemonstrated but with slight increasing 9 mm nodularity along the inferior margin. This could represent progressive pleural parenchymal scarr ing. Close follow-up recommended. 3. Irregularity of the overlying right lateral fourth and fifth ribs is unchanged from 01/06/2021 but again, noted to be new from 07/08/2020.
== END | disposition home or self-care (01) ==
LOC: RADCTMAIN 12:35
PROVIDERS: ATTEND Internal Medicine Hematology & Oncology
DX: C34.91 Malignant neoplasm of unspecified part of right bronchus or lung (principal); J43.9 Emphysema, unspecified
CPT/HCPCS: 82565; 84520; 71260; 36415; Q9967

== ENCOUNTER → 2021-07-31 | Outpatient (CLI) | payer MEDICARE ==
--- NOTE | 2021-08-03 08:44 | PE ---
EXAMINATION TYPE: PET CT fusion skull to thigh DATE OF EXAM: 07/31/2021 COMPARISON: PET/CT July 13, 2019. Most recent chest CT July 13, 2021 HISTORY: Right-sided small fell lung cancer originally diagnosed 2018 TECHNIQUE: Following the intravenous administration of 11.89 mCi of F-18 FDG, whole body images are performed from the skull base to the midthigh. Images are reviewed on the computer in the coronal, a xial, and sagittal planes. Reconstructed rotating images are created on independent workstation and reviewed on the computer. A localization and attenuation correction CT is performed in conjunction with the PET scan. Blood glucose level equals 86. SCAN: Subsequent Scan FINDINGS: SKULL BASE AND NECK: No new suspicious area of abnormal hypermetabolic uptake. CHEST, MEDIASTINUM, AND HILAR REGION: Bilateral moderate underlying emphysematous change redemonstrat ed. Stable focal pleural thickening lateral right upper lung extending inferiorly and centrally with slight 8mm nodular component axial image 88, this area is ametabolic favoring scarring. No areas of a bnormal hypermetabolic uptake study. ABDOMEN AND PELVIS: No areas of abnormal hypermetabolic uptake. No adrenal masses. OSSEOUS STRUCTURES: No abnormal hypermetabolic uptake OTHER CT: Prominent right and left pulmonary arteries redemonstrated suggesting underlying pulmonary artery hypertension. Ascending aorta measures up to 3.7 cm in diameter. There is simple appearing 2.9 cm thin-walled cyst in the right kidney laterally axial image 139. Smal l dependent gallstones redemonstrated. Uterus surgically absent. Patient has little intra-abdominal f at. Hepatomegaly redemonstrated. IMPRESSION: No suspicious hypermetabolic uptake at the area of concern lateral right upper lung consi stent with treated neoplasm. No suspicious hypermetabolic uptake to suggest active malignancy. Contin ued imaging monitoring advised.
== END | disposition home or self-care (01) ==
LOC: RADPETMAIN 08:45
PROVIDERS: ATTEND Internal Medicine Hematology & Oncology
DX: Z08 Encounter for follow-up examination after completed treatment for malignant neoplasm (principal); C34.91 Malignant neoplasm of unspecified part of right bronchus or lung; J43.9 Emphysema, unspecified; J98.4 Other disorders of lung; N28.1 Cyst of kidney, acquired; K80.20 Calculus of gallbladder without cholecystitis without obstruction; R16.0 Hepatomegaly, not elsewhere classified; Z85.118 Personal history of other malignant neoplasm of bronchus and lung
CPT/HCPCS: 78815; A9552

== ENCOUNTER → 2021-11-24 | Outpatient (CLI) | payer MEDICARE ==
--- NOTE | 2021-11-24 10:39 | CT ---
EXAMINATION TYPE: CT chest w con DATE OF EXAM: 11/24/2021 COMPARISON: Chest CT July 13, 2021 and older studies. Most recent PET/CT July 31, 2021 and old er studies. HISTORY: lung CA progress study. Originally diagnosed right lung 2019. CT DLP: 295 mGycm. Automated Exposure Control for Dose Reduction was Utilized. TECHNIQUE: CT scan of the thorax is performed following with IV Contrast, patient injected with 100 mL of Isovue 300. FINDINGS: LUNGS: Background moderate underlying emphysematous change with moderate biapical pleural/parenchymal scarring is redemonstrated. Peripheral right upper lung slightly thickened scarring axial image 22 i s unchanged from most recent CT and PET/CT. Scattered mild linear scarring in the mid to lower lungs greatest near diaphragms is redemonstrated. No new greater than 5 mm noncalcified pulmonary nodules o r masses. No pleural effusion or pneumothorax is seen bilaterally. MEDIASTINUM: There are no new greater than 1 cm hilar or mediastinal lymph nodes. No cardiomegaly or pericardial effusion is seen. Prominent right and left pulmonary arteries redemonstrated, CT find ing suggestive of underlying pulmonary artery hypertension. OTHER: Persistent 3.4 cm thin-walled cyst posteriorly upper pole of the right kidney axial image 62. IMPRESSION: Posttreatment changes periphery of the right upper lobe are stable. No new suspicious nod ules or adenopathy to suggest active neoplastic recurrence.
== END | disposition home or self-care (01) ==
LOC: RADCTMAIN 08:36
PROVIDERS: ATTEND Internal Medicine Hematology & Oncology
DX: C34.91 Malignant neoplasm of unspecified part of right bronchus or lung (principal)
CPT/HCPCS: 82565; 84520; 71260; 36415; Q9967

== ENCOUNTER → 2022-05-28 | Outpatient (CLI) | payer MEDICARE ==
--- NOTE | 2022-05-28 09:08 | CT ---
EXAMINATION TYPE: CT chest w con DATE OF EXAM: 05/28/2022 COMPARISON: 11/24/2021 HISTORY: Observation for Mets CT DLP: 116.20 mGycm Automated exposure control for dose reduction was used. CONTRAST: CT scan of the chest is performed with IV Contrast, patient injected with 70 mL of Isovue 300. FINDINGS: LUNGS: Right upper lobe pulmonary nodule measures 1.4 cm versus 1.4 cm previously. Adjacent pleural t hickening with adjacent rib fragmentation of right rib #4. No additional nodules or masses seen. Unde rlying emphysematous change. Scattered subpleural fibrosis throughout both lungs. MEDIASTINUM: There are no greater than 1 cm hilar or mediastinal lymph nodes. No pericardial effusi on is seen. Thoracic aorta is of normal caliber. The heart is not enlarged. UPPER ABDOMEN: Persistent simple cyst upper pole left kidney. OTHER: No additional significant abnormality is seen. IMPRESSION: 1. Stable nodular density with posttreatment changes right upper lobe associated pleural thickening. Stable adjacent fragmentation of right rib 4.
== END | disposition home or self-care (01) ==
LOC: RADCTMAIN 07:32
PROVIDERS: ATTEND Internal Medicine Hematology & Oncology
DX: C34.91 Malignant neoplasm of unspecified part of right bronchus or lung (principal)
CPT/HCPCS: 82565; 84520; 71260; 36415; Q9967

== ENCOUNTER 2023-06-26 11:31 | Emergency (ER) | payer MEDICARE ==
--- NOTE | 2023-06-26 12:04 | ED ---
URI HPI - General Chief Complaint: Upper Respiratory Infection Stated Complaint: light headed, runny nose Time Seen by Provider: 06/26/23 11:37 Source: patient, family, RN notes reviewed Mode of arrival: ambulatory Limitations: no limitations - History of Present Illness Initial Comments: 68-year-old female presents emergency Department chief complaint of congestion, sore throat. Patient states started a few days ago states she just feels very lousy denies any chest pain or shortness breath no significant cough. She states that she has less appetite than normal for her. Denies any abdominal pain no palpitations states that she did have some ear discomfort that has resolved. Patient denies any other associated symptoms. - Related Data Home Medications Medication Instructions Recorded Confirmed Cholecalciferol [Vitamin D3 (25 5,000 unit PO DAILY 06/13/19 11/28/20 Mcg = 1000 Iu)] Aspirin [Adult Low Dose Aspirin EC] 81 mg PO DAILY 06/20/19 11/28/20 Ondansetron [Zofran] 4 mg PO Q4HR PRN 06/20/19 11/28/20 ALPRAZolam [Xanax] 1 mg PO TID PRN 11/28/20 11/28/20 Lutein 20 mg PO DAILY 11/28/20 11/28/20 Meclizine [Antivert] 25 mg PO TID PRN 11/28/20 11/28/20 Previous Rx's Medication Instructions Recorded Metoprolol Tartrate [Lopressor] 25 mg PO BID #60 tab 06/15/19 Meclizine [Antivert] 25 mg PO TID #20 tab 11/28/20 Allergies Allergy/AdvReac Type Severity Reaction Status Date / Time nicotine Allergy Rash/Hives Verified 06/26/23 11:36 [email or web address] [From Chantix] Allergy Rash/Hives Verified 06/26/23 11:36 Review of Systems ROS Statement: Those systems with pertinent positive or pertinent negative responses have been documented in the HPI. ROS Other: All systems not noted in ROS Statement are negative. 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 Small cell lung cancer History of Any Multi-Drug Resistant Organisms: None Reported Past Surgical History: Appendectomy, Hysterectomy, Orthopedic Surgery Additional Past Surgical History / Comment(s): Right knee scope. Lung biopsy Past Anesthesia/Blood Transfusion Reactions: Postoperative Nausea & Vomiting (PONV) Past Psychological History: No Psychological Hx Reported Smoking Status: Former smoker Past Alcohol Use History: None Reported Past Drug Use History: None Reported - Past Family History Mother Family Medical History: Cancer Additional Family Medical History / Comment(s): stomach Father Family Medical History: Coronary Artery Disease (CAD) General Exam Limitations: no limitations General appearance: alert, in no apparent distress Head exam: Present: atraumatic, normocephalic, normal inspection Eye exam: Present: normal appearance, PERRL, EOMI. Absent: scleral icterus, conjunctival injection, periorbital swelling ENT exam: Present: normal exam, normal oropharynx, mucous membranes moist Neck exam: Present: normal inspection, full ROM. Absent: tenderness, meningismus, lymphadenopathy Respiratory exam: Present: normal lung sounds bilaterally. Absent: respiratory distress, wheezes, rales, rhonchi, stridor Cardiovascular Exam: Present: regular rate, normal rhythm, normal heart sounds. Absent: systolic murmur, diastolic murmur, rubs, gallop, clicks GI/Abdominal exam: Present: soft, normal bowel sounds. Absent: distended, tenderness, guarding, rebound, rigid Course Vital Signs 06/26/23 06/26/23 06/26/23 11:34 11:48 12:59 Temperature 98.9 F 98.7 F Pulse Rate 69 67 Respiratory 20 18 18 Rate Blood Pressure 131/65 128/76 O2 Sat by Pulse 98 99 Oximetry Medical Decision Making - Medical Decision Making Was pt. sent in by a medical professional or institution (, PA, WAGON DRILL OPERATOR, urgent care, hospital, or snf...) When possible be specific @ -No Did you speak to anyone other than the patient for history (EMS, parent, family, police, friend...)? What history was obtained from this source @ -No Did you review nursing and triage notes (agree or disagree)? Why? @ -I reviewed and agree with nursing and triage notes Were old charts reviewed (outside hosp., previous admission, EMS record, old EKG, old radiological studies, urgent care reports/EKG's, snf records)? Report findings @ -No old charts were reviewed Differential Diagnosis (chest pain, altered mental status, abdominal pain women, abdominal pain men, vaginal bleeding, weakness, fever, dyspnea, syncope, headache, dizziness, GI bleed, back pain, seizure, CVA, palpatations, mental health, musculoskeletal)? @ -[URI, covid influenza and RSV EKG interpreted by me (3pts min.). @ -[None X-rays interpreted by me (1pt min.). @ -None done CT interpreted by me (1pt min.). @ -None done U/S interpreted by me (1pt. min.). @ -None done What testing was considered but not performed or refused? (CT, X-rays, U/S, labs)? Why? @ -None What meds were considered but not given or refused? Why? @ -None Did you discuss the management of the patient with other professionals (rose leal i.e. , PA, WAGON DRILL OPERATOR, lab, RT, psych nurse, social media campaign manager, automatic driller and reamer, teacher, protection officer, casework manager)? Give summary @ -No Was smoking cessation discussed for >3mins.? @ -No Was critical care preformed (if so, how long)? @ -No Were there social determinants of health that impacted care today? How? (Homelessness, low income, unemployed, alcoholism, drug addiction, transportation, low edu. Level, literacy, decrease access to med. care, care home, rehab)? @ -No Was there de-escalation of care discussed even if they declined (Discuss DNR or withdrawal of care, Hospice)? DNR status @ -No What co-morbidities impacted this encounter? (DM, HTN, Smoking, COPD, CAD, Cancer, CVA, ARF, Chemo, Hep., AIDS, mental health diagnosis, sleep apnea, morbid obesity)? @ -None Was patient admitted / discharged? Hospital course, mention meds given and route, prescriptions, significant lab abnormalities, going to OR and other pertinent info. @ -Discharge patient viral URI patient will take [id number] cough and cold medications as directed return parameters were discussed patient and family agree to plan. Undiagnosed new problem with uncertain prognosis? @ -No Drug Therapy requiring intensive monitoring for toxicity (Heparin, Nitro, Insulin, Cardizem)? @ -No Were any procedures done? @ -No Diagnosis/symptom? @ -URI Acute, or Chronic, or Acute on Chronic? @ -Acute Uncomplicated (without systemic symptoms) or Complicated (systemic symptoms)? @ -Uncomplicated Side effects of treatment? @ -No Exacerbation, Progression, or Severe Exacerbation? @ -No Poses a threat to life or bodily function? How? (Chest pain, USA, PA, pneumonia, PE, COPD, DKA, ARF, appy, cholecystitis, CVA, Diverticulitis, Homicidal, Suicidal, threat to staff... and all critical care pts) @ -No - Lab Data Lab Results 06/26/23 06/26/23 Range/Units 11:45 11:45 Influenza Type A (PCR) Not Detected (Not Detectd) Influenza Type B (PCR) Not Detected (Not Detectd) RSV (PCR) Not Detected (Not Detectd) SARS-CoV-2 (PCR) Not Detected (Not Detectd) Group A Strep (PCR) NOT DETECTED (Not Detectd) Disposition Clinical Impression: Acute upper respiratory infection Disposition: HOME SELF-CARE Condition: Stable Instructions (If sedation given, give patient instructions): Upper Respiratory Infection (ED) Additional Instructions: Please return to the Emergency Department if symptoms worsen or any other concerns. Is patient prescribed a controlled substance at d/c from ED?: No Referrals: Chris Grossman MD [Primary Care Provider] - 1-2 days Time of Disposition: 12:47
[2023-06-26 12:12] VITALS: RESP 18
[2023-06-26 13:02] VITALS: BP 128/76; PULSE 67; TEMP 98.7
== END 2023-06-26 13:01 | disposition home or self-care (01) ==
LOC: EC 11:31
DX: J06.9 Acute upper respiratory infection, unspecified (principal); J44.9 Chronic obstructive pulmonary disease, unspecified; I10 Essential (primary) hypertension; Z87.891 Personal history of nicotine dependence; Z79.82 Long term (current) use of aspirin; Z20.822 Contact with and (suspected) exposure to COVID-19; Z88.8 Allergy status to other drugs, medicaments and biological substances
CPT/HCPCS: 87636; 87651; 99283

== ENCOUNTER → 2023-07-13 | Outpatient (CLI) | payer MEDICARE ==
[2023-07-13 10:03] LABS: African American GFR (CKD) 80 (>60 ml/min/1.73 sqM); Blood Urea Nitrogen 23 mg/dL (7-17); Non-African American GFR(CKD) 69 (>60 ml/min/1.73 sqM)
--- NOTE | 2023-07-13 10:49 | CT ---
EXAMINATION TYPE: CT chest w con CT DLP: 134.1 mGycm, Automated exposure control for dose reduction was used. DATE OF EXAM: 07/13/2023 10:30 AM COMPARISON: Multiple CT chest with most recently 05/28/2022, PET/CT 07/31/2021. CLINICAL INDICATION:Female, 68 years old with history of C34.91 Lung cancer; [facility], follow up lung ca TECHNIQUE: Multiple axial images were obtained through the chest following the administration of 100 cc of Isovue 300. . Coronal and sagittal reformats reviewed. FINDINGS: LUNGS/ PLEURA: No pleural effusion or pneumothorax. Stable masslike opacity within the region of the post surgical changes within the right upper lobe measuring 2.1 x 1.7 cm (series 4, image 24). Stabl e subpleural right lower lobe 3 mm pulmonary nodule (series 4, image 52). Stable subpleural left uppe r lobe 3 mm pulmonary nodule (series 4, image 28). No new or enlarging pulmonary nodules. Mild centri lobular emphysematous changes. Stable minimal scattered subpleural reticular pulmonary fibrotic sands es. AIRWAY: Patent and unremarkable.. HEART: Size within normal limits. No pericardial effusion.. MEDIASTINUM: No pathologically enlarged lymph nodes identified. VASCULATURE: No aortic aneurysm. MUSCULOSKELETAL: No acute osseous abnormalities. Similar area of sclerosis within the bilateral proxi mal humeri. Similar cortical irregularity involving the right lateral fourth and fifth ribs adjacent to site of prior treatment. No new or aggressive osseous lesion. SOFT TISSUES/LYMPH NODES: Unremarkable. LOWER NECK: No significant findings. UPPER ABDOMEN: Right renal cyst measuring up to 3.4 cm. IMPRESSION: 1. No significant change in masslike opacity in the right upper lobe at site of previous treatment fr om prior examination however this is slightly increased in size when compared to 11/24/2021 exam. Mahnza ining pulmonary nodules are stable. No new or enlarging pulmonary nodules noted. Consider further brody luation with PET/CT to rule out underlying recurrence. 2. COPD and pulmonary fibrotic changes.
== END | disposition home or self-care (01) ==
LOC: RADCTMAIN 09:21
PROVIDERS: ATTEND Internal Medicine Hematology & Oncology
DX: C34.91 Malignant neoplasm of unspecified part of right bronchus or lung (principal); J44.9 Chronic obstructive pulmonary disease, unspecified; J84.10 Pulmonary fibrosis, unspecified; I80.9 Phlebitis and thrombophlebitis of unspecified site; D64.81 Anemia due to antineoplastic chemotherapy; D69.59 Other secondary thrombocytopenia; Z71.3 Dietary counseling and surveillance
CPT/HCPCS: 82565; 84520; 71260; 36415; Q9967

== ENCOUNTER 2023-07-17 07:41 | Emergency (ER) | payer MEDICARE ==
[2023-07-17] MEDS ORDERED: SODIUM CHLORIDE 0.9% 500 ML 500 ML IV STA (08:01)
[2023-07-17] MEDS ORDERED: SODIUM CHLORIDE 0.9% 1,000 ML IV STA (08:01)
[2023-07-17] MEDS ORDERED: ACETAMINOPHEN TAB 500 MG TAB PO STA (08:01)
[2023-07-17] MEDS ORDERED: ONDANSETRON 4 MG/2 ML VIAL IVP STA (08:02)
[2023-07-17 08:09] VITALS: TEMP 98.7
--- NOTE | 2023-07-17 08:10 | ED ---
General Adult HPI - General Chief complaint: Nausea/Vomiting/Diarrhea Stated complaint: dehydration Time Seen by Provider: 07/17/23 07:50 Source: patient, RN notes reviewed, old records reviewed Mode of arrival: ambulatory Limitations: no limitations - History of Present Illness Initial comments: This a 68-year-old female presents emergency department with past medical history significant for lung cancer and high blood pressure. Patient comes in today stating that for the last 2 weeks she has been constantly nauseous and unable to keep almost anything down. Patient states she's been in the ER before and he still continues. Patient was told it was a virus but she can't keep anything down his been another week. Patient denies fever but states she feels hot and has the chills but she just doesn't take her temperature. Patient denies headache patient denies any numbness or weakness. Patient denies chest pain palpitations difficulty breathing or shortness of breath. Patient denies any abdominal pain. Patient denies any vomiting but states she does have diarrhea. - Related Data Home Medications Medication Instructions Recorded Confirmed Cholecalciferol [Vitamin D3 (25 5,000 unit PO DAILY 06/13/19 11/28/20 Mcg = 1000 Iu)] Aspirin [Adult Low Dose Aspirin EC] 81 mg PO DAILY 06/20/19 11/28/20 Ondansetron [Zofran] 4 mg PO Q4HR PRN 06/20/19 11/28/20 ALPRAZolam [Xanax] 1 mg PO TID PRN 11/28/20 11/28/20 Lutein 20 mg PO DAILY 11/28/20 11/28/20 Meclizine [Antivert] 25 mg PO TID PRN 11/28/20 11/28/20 Previous Rx's Medication Instructions Recorded Metoprolol Tartrate [Lopressor] 25 mg PO BID #60 tab 06/15/19 Meclizine [Antivert] 25 mg PO TID #20 tab 11/28/20 Metoclopramide [Reglan] 5 mg PO ACHS #20 tab 07/17/23 Allergies Allergy/AdvReac Type Severity Reaction Status Date / Time nicotine Allergy Rash/Hives Verified 07/17/23 07:47 [email or web address] [From Chantix] Allergy Rash/Hives Verified 07/17/23 07:47 Review of Systems ROS Statement: Those systems with pertinent positive or pertinent negative responses have been documented in the HPI. ROS Other: All systems not noted in ROS Statement are negative. 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 Small cell lung cancer History of Any Multi-Drug Resistant Organisms: None Reported Past Surgical History: Appendectomy, Hysterectomy, Orthopedic Surgery Additional Past Surgical History / Comment(s): Right knee scope. Lung biopsy Past Anesthesia/Blood Transfusion Reactions: Postoperative Nausea & Vomiting (PONV) Past Psychological History: No Psychological Hx Reported Smoking Status: Former smoker Past Alcohol Use History: None Reported Past Drug Use History: None Reported - Past Family History Mother Family Medical History: Cancer Additional Family Medical History / Comment(s): stomach Father Family Medical History: Coronary Artery Disease (CAD) General Exam - General Exam Comments Initial Comments: GENERAL: Patient is well-developed and well-nourished. Patient is nontoxic and well- hydrated and is in mild distress. ENT: Neck is soft and supple. No significant lymphadenopathy is noted. Oropharynx is clear. Dry mucous membranes. Neck has full range of motion without elic iting any pain. EYES: The sclera were anicteric and conjunctiva were pink and moist. Extraocular movements were intact and pupils were equal round and reactive to light. Eyelids were unremarkable. PULMONARY: Unlabored respirations. Good breath sounds bilaterally. No audible rales rhonchi or wheezing was noted. CARDIOVASCULAR: There is a regular rate and rhythm without any murmurs gallops or rubs. ABDOMEN: Soft and nontender with normal bowel sounds. SKIN: Skin is clear with no lesions or rashes and otherwise unremarkable. NEUROLOGIC: Patient is alert and oriented x3. Cranial nerves II through XII are grossly intact. Motor and sensory are also intact. Normal speech, volume and content. Symmetrical smile. MUSCULOSKELETAL: Normal extremities with adequate strength and full range of motion. LYMPHATICS: No significant lymphadenopathy is noted PSYCHIATRIC: Normal psychiatric evaluation. Limitations: no limitations Course Vital Signs 07/17/23 07/17/23 07/17/23 07:44 09:06 10:03 Temperature 98.7 F Pulse Rate 57 L 67 53 L Respiratory 20 18 18 Rate Blood Pressure 139/58 110/55 111/49 O2 Sat by Pulse 99 97 99 Oximetry Medical Decision Making - Medical Decision Making EKG is interpreted by myself shows sinus bradycardia 52 bpm VA interval 232 QRS is 90 QT intervals 4 5070 QTC is 438. Patient's EKG shows no ST segment elevation or depression. Was pt. sent in by a medical professional or institution (MONTY Vallecillo, COMPLIANCE INVESTIGATOR, urgent care, hospital, or senior living...) When possible be specific @ -No Did you speak to anyone other than the patient for history (EMS, parent, family, police, friend...)? What history was obtained from this source @ -No Did you review nursing and triage notes (agree or disagree)? Why? @ -I reviewed and agree with nursing and triage notes Were old charts reviewed (outside hosp., previous admission, EMS record, old EKG, old radiological studies, urgent care reports/EKG's, senior living records)? Report findings @ -I reviewed prior charts prior lab work Differential Diagnosis (chest pain, altered mental status, abdominal pain women, abdominal pain men, vaginal bleeding, weakness, fever, dyspnea, syncope, headach e, dizziness, GI bleed, back pain, seizure, CVA, palpatations, mental health, musculoskeletal)? @ -Acute vomiting, viral syndrome, gastric reflux, gastroenteritis this is not all inclusive list EKG interpreted by me (3pts min.). @ -As above X-rays interpreted by me (1pt min.). @ -None done CT interpreted by me (1pt min.). @ -None done U/S interpreted by me (1pt. min.). @ -None done What testing was considered but not performed or refused? (CT, X-rays, U/S, labs)? Why? @ -None What meds were considered but not given or refused? Why? @ -None Did you discuss the management of the patient with other professionals (professionals i.e. MONTY Vallecillo, COMPLIANCE INVESTIGATOR, lab, RT, psych nurse, secondary social studies teacher, deep fat fry cook, teacher, global chief creative officer, case finisher)? Give summary @ -No Was smoking cessation discussed for >3mins.? @ -No Was critical care preformed (if so, how long)? @ -No Were there social determinants of health that impacted care today? How? (Homelessness, low income, unemployed, alcoholism, drug addiction, transportation, low edu. Level, literacy, decrease access to med. care, long term, rehab)? @ -No Was there de-escalation of care discussed even if they declined (Discuss DNR or withdrawal of care, Hospice)? DNR status @ -No What co-morbidities impacted this encounter? (DM, HTN, Smoking, COPD, CAD, Cancer, CVA, ARF, Chemo, Hep., AIDS, mental health diagnosis, sleep apnea, morbid obesity)? @ -None Was patient admitted / discharged? Hospital course, mention meds given and route, prescriptions, significant lab abnormalities, going to OR and other pertinent info. @ -I gave the patient fluids and Zofran and she felt better but she still is nauseous U5 milligrams of Reglan and she felt considerably better. Patient will follow-up with GI and her primary medical care doctor I will give the patient Reglan to go home with. Undiagnosed new problem with uncertain prognosis? @ -No Drug Therapy requiring intensive monitoring for toxicity (Heparin, Nitro, Insulin, Cardizem)? @ -No Were any procedures done? @ -No Diagnosis/symptom? @ -Chronic nausea vomiting Acute, or Chronic, or Acute on Chronic? @ -Chronic Uncomplicated (without systemic symptoms) or Complicated (systemic symptoms)? @ -Complicated Side effects of treatment? @ -No Exacerbation, Progression, or Severe Exacerbation? @ -No Poses a threat to life or bodily function? How? (Chest pain, USA, NH, pneumonia, PE, COPD, DKA, ARF, appy, cholecystitis, CVA, Diverticulitis, Homicidal, Suicidal, threat to staff... and all critical care pts) @ -No - Lab Data Result diagrams: 07/17/23 08:17 07/17/23 08:17 Lab Results 07/17/23 07/17/23 07/17/23 Range/Units 08:17 08:17 08:17 WBC 7.5 (3.8-10.6) k/uL RBC 4.38 (3.80-5.40) m/uL Hgb 14.4 (11.4-16.0) gm/dL Hct 43.5 (34.0-46.0) % MCV 99.3 (80.0-100.0) fL MCH 32.8 (25.0-35.0) pg MCHC 33.1 (31.0-37.0) g/dL RDW 12.7 (11.5-15.5) % Plt Count 154 (150-450) k/uL MPV 9.2 Neutrophils % 83 % Lymphocytes % 10 % Monocytes % 5 % Eosinophils % 0 % Basophils % 0 % Neutrophils # 6.2 (1.3-7.7) k/uL Lymphocytes # 0.8 L (1.0-4.8) k/uL Monocytes # 0.4 (0-1.0) k/uL Eosinophils # 0.0 (0-0.7) k/uL Basophils # 0.0 (0-0.2) k/uL Sodium (137-145) mmol/L Potassium (3.5-5.1) mmol/L Chloride (98-107) mmol/L Carbon Dioxide (22-30) mmol/L Anion Gap mmol/L BUN (7-17) mg/dL Creatinine (0.52-1.04) mg/dL Est GFR (CKD-EPI)AfAm (>60 ml/min/1.73 sqM) Est GFR (CKD-EPI)NonAf (>60 ml/min/1.73 sqM) Glucose (74-99) mg/dL Plasma Lactic Acid Misael (0.7-2.0) mmol/L Calcium (8.4-10.2) mg/dL Magnesium (1.6-2.3) mg/dL Total Bilirubin (0.2-1.3) mg/dL AST (14-36) U/L ALT (4-34) U/L Alkaline Phosphatase (38-126) U/L Total Protein (6.3-8.2) g/dL Albumin (3.5-5.0) g/dL TSH (0.465-4.680) mIU/L Urine Color Yellow Urine Appearance Clear (Clear) Urine pH 6.0 (5.0-8.0) Ur Specific [place] 1.024 (1.001-1.035) Urine Protein Trace H (Negative) Urine Glucose (UA) Negative (Negative) Urine Ketones Negative (Negative) Urine Blood Negative (Negative) Urine Nitrite Negative (Negative) Urine Bilirubin Negative (Negative) Urine Urobilinogen <2.0 (<2.0) mg/dL Ur Leukocyte Esterase Negative (Negative) Coronavirus (PCR) Not Detected (Not Detectd) 07/17/23 07/17/23 Range/Units 08:17 08:17 WBC (3.8-10.6) k/uL RBC (3.80-5.40) m/uL Hgb (11.4-16.0) gm/dL Hct (34.0-46.0) % MCV (80.0-100.0) fL MCH (25.0-35.0) pg MCHC (31.0-37.0) g/dL RDW (11.5-15.5) % Plt Count (150-450) k/uL MPV Neutrophils % % Lymphocytes % % Monocytes % % Eosinophils % % Basophils % % Neutrophils # (1.3-7.7) k/uL Lymphocytes # (1.0-4.8) k/uL Monocytes # (0-1.0) k/uL Eosinophils # (0-0.7) k/uL Basophils # (0-0.2) k/uL Sodium 137 (137-145) mmol/L Potassium 4.3 (3.5-5.1) mmol/L Chloride 101 (98-107) mmol/L Carbon Dioxide 28 (22-30) mmol/L Anion Gap 8 mmol/L BUN 13 (7-17) mg/dL Creatinine 0.77 (0.52-1.04) mg/dL Est GFR (CKD-EPI)AfAm >90 (>60 ml/min/1.73 sqM) Est GFR (CKD-EPI)NonAf 78 (>60 ml/min/1.73 sqM) Glucose 119 H (74-99) mg/dL Plasma Lactic Acid Misael 1.2 (0.7-2.0) mmol/L Calcium 9.3 (8.4-10.2) mg/dL Magnesium 2.0 (1.6-2.3) mg/dL Total Bilirubin 1.1 (0.2-1.3) mg/dL AST 21 (14-36) U/L ALT 14 (4-34) U/L Alkaline Phosphatase 61 (38-126) U/L Total Protein 6.8 (6.3-8.2) g/dL Albumin 4.2 (3.5-5.0) g/dL TSH 2.330 (0.465-4.680) mIU/L Urine Color Urine Appearance (Clear) Urine pH (5.0-8.0) Ur Specific [place] (1.001-1.035) Urine Protein (Negative) Urine Glucose (UA) (Negative) Urine Ketones (Negative) Urine Blood (Negative) Urine Nitrite (Negative) Urine Bilirubin (Negative) Urine Urobilinogen (<2.0) mg/dL Ur Leukocyte Esterase (Negative) Coronavirus (PCR) (Not Detectd) Disposition Clinical Impression: Chronic vomiting Disposition: HOME SELF-CARE Instructions (If sedation given, give patient instructions): Acute Nausea and Vomiting (ED) Prescriptions: Metoclopramide [Reglan] 5 mg PO ACHS #20 tab Is patient prescribed a controlled substance at d/c from ED?: No Referrals: Chris Grossman MD [Primary Care Provider] - 1-2 days Time of Disposition: 11:13
[2023-07-17 09:14] VITALS: RESP 18
[2023-07-17 09:16] LABS: Basophils % (A) 0 %; Eosinophils % (A) 0 %; HCT 43.5 % (34.0-46.0); HGB 14.4 gm/dL (11.4-16.0); Lymphocytes # (A) 0.8 k/uL (1.0-4.8); Lymphocytes % (A) 10 %; MCH 32.8 pg (25.0-35.0); MCHC 33.1 g/dL (31.0-37.0); MCV 99.3 fL (80.0-100.0); Mean Platelet Volume 9.2; Monocytes # (A) 0.4 k/uL (0-1.0); Monocytes % (A) 5 %; Neutrophils # (A) 6.2 k/uL (1.3-7.7); Neutrophils % (A) 83 %; Platelet Count 154 k/uL (150-450); RBC 4.38 m/uL (3.80-5.40); RDW 12.7 % (11.5-15.5); WBC 7.5 k/uL (3.8-10.6)
--- NOTE | 2023-07-17 09:35 | XR ---
EXAMINATION TYPE: XR chest 2V DATE OF EXAM: 07/17/2023 8:35 AM CLINICAL INDICATION:Female, 68 years old with history of Fever; [facility] COMPARISON: CT chest 07/13/2023, chest x-ray 03/23/2022 TECHNIQUE: XR chest 2V Frontal and lateral views of the chest. FINDINGS: Lines/Tubes: No indwelling lines are seen. Lungs/Pleura: Hyperinflated lungs with interstitial coarsening suggestive of COPD. Nodular density ab out 18 x 12 mm in size in the right upper lobe, with tail extending to mild pleural thickening, remai ns grossly stable radiographically. Smaller nodularity seen on prior CT not clearly identified, and w ould be best assessed by a follow-up CT when clinically warranted. No acute infiltrate, edema, sizabl e effusion, or pneumothorax. Pulmonary vascularity: Unremarkable. Heart/mediastinum: Cardiomediastinal silhouette is stable. Heart is not grossly enlarged. Musculoskeletal: No acute osseous pathology. Mild degenerative changes. Other findings: None IMPRESSION: 1. Grossly stable lung findings including COPD changes and right upper lobe nodular density. 2. No evidence for acute cardiopulmonary disease.
[2023-07-17 09:43] LABS: Sodium 137 mmol/L (137-145)
[2023-07-17 09:46] LABS: ALT 14 U/L (4-34); AST 21 U/L (14-36); African American GFR (CKD) >90 (>60 ml/min/1.73 sqM); Albumin 4.2 g/dL (3.5-5.0); Alkaline Phosphatase 61 U/L (38-126); Anion Gap 8 mmol/L; Blood Urea Nitrogen 13 mg/dL (7-17); Calcium 9.3 mg/dL (8.4-10.2); Carbon Dioxide 28 mmol/L (22-30); Chloride 101 mmol/L (98-107); Glucose 119 mg/dL (74-99); Non-African American GFR(CKD) 78 (>60 ml/min/1.73 sqM); Potassium 4.3 mmol/L (3.5-5.1); Total Bilirubin 1.1 mg/dL (0.2-1.3); Total Protein 6.8 g/dL (6.3-8.2)
[2023-07-17 10:03] LABS: Appearance,Urine Clear (Clear); Bilirubin,Urine Negative (Negative); Blood,Urine Negative (Negative); Color,Urine Yellow; Glucose,Urine (UA) Negative (Negative); Ketones,Urine Negative (Negative); Leukocyte Esterase,Urine Negative (Negative); Nitrite,Urine Negative (Negative); Protein,Urine Trace (Negative); Specific Gravity,Urine 1.024 (1.001-1.035); Urobilinogen,Urine <2.0 mg/dL (<2.0)
[2023-07-17] MEDS ORDERED: METOCLOPRAMIDE 5 MG/ML 2 ML VIAL IVP STA (10:04)
[2023-07-17 11:49] VITALS: BP 114/84; PULSE 54
== END 2023-07-17 11:42 | disposition home or self-care (01) ==
LOC: EC 07:41
DX: R11.2 Nausea with vomiting, unspecified (principal); I10 Essential (primary) hypertension; J44.9 Chronic obstructive pulmonary disease, unspecified; Z87.891 Personal history of nicotine dependence; Z79.82 Long term (current) use of aspirin; Z79.899 Other long term (current) drug therapy; Z88.8 Allergy status to other drugs, medicaments and biological substances
CPT/HCPCS: 36415; 93005; 80053; 84443; 83605; 83735; 85025; 81003; 87040; 87635; 71046; 99284; 96374; 96375; 96361; J2765; J2405

== ENCOUNTER → 2024-02-28 | Outpatient (CLI) | payer MEDICARE ==
[2024-02-28 12:44] LABS: African American GFR (CKD) 78 (>60 ml/min/1.73 sqM); Blood Urea Nitrogen 15 mg/dL (7-17); Non-African American GFR(CKD) 67 (>60 ml/min/1.73 sqM)
--- NOTE | 2024-02-28 13:21 | CT ---
EXAMINATION TYPE: CT chest w con DATE OF EXAM: 02/28/2024 COMPARISON: 07/13/2023 HISTORY: f/u lung cancer CT DLP: 294 mGycm Automated exposure control for dose reduction was used. CONTRAST: CT scan of the chest is performed with IV Contrast, patient injected with 100 mL of Isovue 300. FINDINGS: LUNGS: Masslike opacity right upper lobe is again noted and currently measures 2.2 x 1.5 cm versus 2. 1 x 1.7 cm previously. Adjacent pleural parenchymal scarring. There are few scattered sub-5 mm pulmon lucio nodules unchanged from prior study. Mild subpleural fibrosis seen. No focal consolidation. Mild C OPD. MEDIASTINUM: There are no greater than 1 cm hilar or mediastinal lymph nodes. No pericardial effusi on is seen. Thoracic aorta is of normal caliber. The heart is not enlarged. UPPER ABDOMEN: No significant abnormality appreciated. OTHER: No additional significant abnormality is seen. IMPRESSION: Masslike opacity right upper lobe is again noted and currently measures 2.2 x 1.5 cm versus 2.1 x 1.7 cm previously. Adjacent pleural parenchymal scarring.
== END | disposition home or self-care (01) ==
LOC: RADCTMAIN 12:04
PROVIDERS: ATTEND Internal Medicine Hematology & Oncology
DX: C34.11 Malignant neoplasm of upper lobe, right bronchus or lung (principal); J94.8 Other specified pleural conditions; Z71.3 Dietary counseling and surveillance; I10 Essential (primary) hypertension; D64.81 Anemia due to antineoplastic chemotherapy; D69.59 Other secondary thrombocytopenia; I80.9 Phlebitis and thrombophlebitis of unspecified site
CPT/HCPCS: 82565; 84520; 71260; 36415; Q9967

== ENCOUNTER 2024-09-06 09:17 | Emergency (ER) | payer MEDICARE ==
--- NOTE | 2024-09-06 09:52 | ED ---
Dizziness HPI - General Chief Complaint: Dizziness Stated Complaint: Nausea, chest pain Time Seen by Provider: 09/06/24 09:50 Source: patient, family Mode of arrival: wheelchair Limitations: no limitations - History of Present Illness Initial Comments: 69-year-old female with a past medical history significant of lung cancer currently in remission hypertension and vertigo presented to the ER for evaluation of cough, congestion and dizziness. Daughter, at bedside, aiding in HPI and past medical history. Patient reports since Tuesday she has been feeli ng ill with a cough and sore throat. Patient states that yesterday she did feel a little better but when waking up this morning she felt extremely dizzy and unwell. Patient does admit to a history of vertigo and states his dizziness feels similar. She does report dizziness is worse with head movements. Upon standing to get out of bed this morning patient states the dizziness caused her to fall backwards landing in the bed. She denies head injury, loss of consciousness or other injuries from this. She also reports nausea and vomiting for which she took Zofran upon waking up this morning. Daughter reports low- grade fevers over the past couple of days. Patient admits to a history of fra ctured ribs on the right side which may never heal per oncology.Patient denies current chest pain, shortness of breath, abdominal pain, constipation/diarrhea or urinary complaints. - Related Data Home Medications Medication Instructions Recorded Confirmed ALPRAZolam [Xanax] 1 mg PO TID PRN 11/28/20 09/06/24 Lutein 20 mg PO DAILY 11/28/20 09/06/24 Cholecalciferol [Vitamin D3 (125 125 mcg PO DAILY 09/06/24 09/06/24 Mcg = 5000 Iu)] Meclizine [Antivert] 12.5 mg PO BID PRN 09/06/24 09/06/24 Metoclopramide [Reglan] 5 mg PO QID PRN 09/06/24 09/06/24 traMADol HCL 50 mg PO Q6H PRN 09/06/24 09/06/24 Previous Rx's Medication Instructions Recorded Metoprolol Tartrate [Lopressor] 25 mg PO BID #60 tab 06/15/19 Oseltamivir [Tamiflu] 75 mg PO Q12HR #10 cap 09/06/24 Allergies Allergy/AdvReac Type Severity Reaction Status Date / Time nicotine Allergy Rash/Hives Verified 09/06/24 10:00 varenicline [From Chantix] Allergy Rash/Hives Verified 09/06/24 10:00 Review of Systems ROS Statement: Those systems with pertinent positive or pertinent negative responses have been documented in the HPI. ROS Other: All systems not noted in ROS Statement are negative. 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 Small cell lung cancer History of Any Multi-Drug Resistant Organisms: None Reported Past Surgical History: Appendectomy, Hysterectomy, Orthopedic Surgery Additional Past Surgical History / Comment(s): Right knee scope. Lung biopsy Past Anesthesia/Blood Transfusion Reactions: Postoperative Nausea & Vomiting (PONV) Past Psychological History: No Psychological Hx Reported Smoking Status: Former smoker Past Alcohol Use History: None Reported Past Drug Use History: None Reported - Past Family History Mother Family Medical History: Cancer Additional Family Medical History / Comment(s): stomach Father Family Medical History: Coronary Artery Disease (CAD) General Exam Limitations: no limitations General appearance: alert, in no apparent distress ENT exam: Present: normal exam, normal oropharynx, mucous membranes moist Respiratory exam: Present: normal lung sounds bilaterally. Absent: respiratory distress, wheezes, rales, rhonchi, stridor Cardiovascular Exam: Present: regular rate, normal rhythm, normal heart sounds. Absent: systolic murmur, diastolic murmur, rubs, gallop, clicks GI/Abdominal exam: Present: soft, normal bowel sounds. Absent: distended, tenderness, guarding, rebound, rigid Neurological exam: Present: alert, oriented X3, CN II-XII intact Skin exam: Present: warm, dry, intact, normal color. Absent: rash Course Vital Signs 09/06/24 09/06/24 09/06/24 09:22 10:09 11:00 Temperature 100.1 F H 101.4 F H 98.8 F Pulse Rate 99 Respiratory 16 Rate Blood Pressure 130/64 O2 Sat by Pulse 94 L Oximetry 09/06/24 09/06/24 11:52 12:22 Temperature 98.8 F Pulse Rate 74 74 Respiratory 20 20 Rate Blood Pressure 125/66 118/55 O2 Sat by Pulse 95 95 Oximetry EKG Findings - EKG Comments: EKG Findings:: EKG taken at 9: 55 showing a sinus rhythm no ST segment elevatio ns or depressions. No T wave abnormalities. Normal axis. Ventricular rate 82, DE interval 135, QRS duration 74, QT/QTc 379/418 Medical Decision Making - Medical Decision Making Was pt. sent in by a medical professional or institution (, PA, TAX CONSULTANT, urgent care, hospital, or penitentiary...) When possible be specific @ -No Did you speak to anyone other than the patient for history (EMS, parent, family, police, friend...)? What history was obtained from this source @ -Patient's daughter, at bedside, aiding in HPI and past medical history. Did you review nursing and triage notes (agree or disagree)? Why? @ -I reviewed and agree with nursing and triage notes Were old charts reviewed (outside hosp., previous admission, EMS record, old EKG, old radiological studies, urgent care reports/EKG's, penitentiary records)? Report findings @ -No old charts were reviewed Differential Diagnosis (chest pain, altered mental status, abdominal pain women, abdominal pain men, vaginal bleeding, weakness, fever, dyspnea, syncope, headache, dizziness, GI bleed, back pain, seizure, CVA, palpatations, mental health, musculoskeletal)? @ -Differential Fever: Pneumonia, viral URI, endocarditis, myocarditis, pericarditis, otitis, sinusitis, peritonsillar Abscess, retropharyngeal Abscess, epiglottitis, peritonitis, appendicitis, [place] cystitis, diverticulitis, hepatitis, colitis, UTI, PID, TOA, pyelonephritis, prostatitis, epididymitis, meningitis, encephalitis, pulmonary embolism, CVA, thyroid storm, pancreatitis, adrenal crisis, cavernous sinus thrombosis, this is not meant to be an all- inclusive list. EKG interpreted by me (3pts min.). @ -As above X-rays interpreted by me (1pt min.). @ -CXR interpreted by me negative for acure focal consolidations, pleural effusions, or pneumothorax. CT interpreted by me (1pt min.). @ -None done U/S interpreted by me (1pt. min.). @ -None done What testing was considered but not performed or refused? (CT, X-rays, U/S, labs)? Why? @ -None What meds were considered but not given or refused? Why? @ -None Did you discuss the management of the patient with other professionals (professionals i.e. , PA, TAX CONSULTANT, lab, RT, psych nurse, social work instructor, private investigator surveillance, teacher, commissioned police officer, upper caser)? Give summary @ -No Was smoking cessation discussed for >3mins.? @ -No Was critical care preformed (if so, how long)? @ -No Were there social determinants of health that impacted care today? How? (Homelessness, low income, unemployed, alcoholism, drug addiction, transportation, low edu. Level, literacy, decrease access to med. care, [facility], rehab)? @ -No Was there de-escalation of care discussed even if they declined (Discuss DNR or withdrawal of care, Hospice)? DNR status @ -No What co-morbidities impacted this encounter? (DM, HTN, Smoking, COPD, CAD, Cancer, CVA, ARF, Chemo, Hep., AIDS, mental health diagnosis, sleep apnea, morbid obesity)? @ -Hx lung cancer Was patient admitted / discharged? Hospital course, mention meds given and route, prescriptions, significant lab abnormalities, going to OR and other pertinent info. @ -Discharged. 69 year old female presenting to the ER for evaluation of cough and dizziness. Upon rooming, history and physical exam completed. Patient febrile at 101.4 vitals otherwise stable. Patient in no signs of acute distress nontoxic-appearing. Exam benign. Laboratory studies obtained unimpressive. Elevation in LFTs which is likely due to Tylenol use. Urine analysis concerning of dehydration with 1+ protein for which patient received IV fluids. Influenza A positive. Chest x-ray negative. Patient will be started on Tamiflu. Patient given IV fluids, Zofran, meclizine and Tylenol for fever and symptom control in the ER, with improvement. Upon reevaluation, patient resting comfortably in exam room no signs of acute distress. Results discussed with patient, all questions answered. Patient is stable for discharge at this time with outpatient follow-up. Strict return parameters discussed. Patient discharged in stable condition with follow-up to PCP. Patient and daughter, at bedside, verbally expressed understanding and agreement with care plan. Case discussed with ED attending, Dr. Knight. Undiagnosed new problem with uncertain prognosis? @ -No Drug Therapy requiring intensive monitoring for toxicity (Heparin, Nitro, Insulin, Cardizem)? @ -No Were any procedures done? @ -No Diagnosis/symptom? @ -Influenza A/acute viral sinusitis Acute, or Chronic, or Acute on Chronic? @ -Acute Uncomplicated (without systemic symptoms) or Complicated (systemic symptoms)? @ -Uncomplicated Side effects of treatment? @ -No Exacerbation, Progression, or Severe Exacerbation? @ -No Poses a threat to life or bodily function? How? (Chest pain, [place], [place], pneumonia, PE, COPD, DKA, ARF, appy, cholecystitis, CVA, Diverticulitis, Homicidal, Suicidal, threat to staff... and all critical care pts) @ -No - Lab Data Result diagrams: 09/06/24 10:22 09/06/24 10:22 Lab Results 09/06/24 09/06/24 09/06/24 Range/Units 10:22 10:22 10:22 WBC 9.2 (3.8-10.6) k/uL RBC 4.51 (3.80-5.40) m/uL Hgb 14.6 (11.4-16.0) gm/dL Hct 43.7 (34.0-46.0) % MCV 96.9 (80.0-100.0) fL MCH 32.4 (25.0-35.0) pg MCHC 33.4 (31.0-37.0) g/dL RDW 12.6 (11.5-15.5) % Plt Count 113 L (150-450) k/uL MPV 9.2 Neutrophils % 87 % Lymphocytes % 5 % Monocytes % 6 % Eosinophils % 1 % Basophils % 0 % Neutrophils # 8.0 H (1.3-7.7) k/uL Lymphocytes # 0.5 L (1.0-4.8) k/uL Monocytes # 0.5 (0-1.0) k/uL Eosinophils # 0.1 (0-0.7) k/uL Basophils # 0.0 (0-0.2) k/uL Sodium 137 (137-145) mmol/L Potassium 4.2 (3.5-5.1) mmol/L Chloride 103 (98-107) mmol/L Carbon Dioxide 29 (22-30) mmol/L Anion Gap 5 mmol/L BUN 16 (7-17) mg/dL Creatinine 0.84 (0.52-1.04) mg/dL Est GFR (CKD-EPI)AfAm 81 (>60 ml/min/1.73 sqM) Est GFR (CKD-EPI)NonAf 70 (>60 ml/min/1.73 sqM) Glucose 123 H (74-99) mg/dL Plasma Lactic Acid Misael 1.3 (0.7-2.0) mmol/L Calcium 8.8 (8.4-10.2) mg/dL Total Bilirubin 0.7 (0.2-1.3) mg/dL AST 47 H (14-36) U/L ALT 41 H (4-34) U/L Alkaline Phosphatase 86 (38-126) U/L Total Protein 6.4 (6.3-8.2) g/dL Albumin 4.1 (3.5-5.0) g/dL Urine Color Urine Appearance (Clear) Urine pH (5.0-8.0) Ur Specific Eliot (1.001-1.035) Urine Protein (Negative) Urine Glucose (UA) (Negative) Urine Ketones (Negative) Urine Blood (Negative) Urine Nitrite (Negative) Urine Bilirubin (Negative) Urine Urobilinogen (<2.0) mg/dL Ur Leukocyte Esterase (Negative) Urine RBC (0-5) /hpf Urine WBC (0-5) /hpf Ur Squamous Epith Cells (0-4) /hpf Hyaline Casts (0-2) /lpf Urine Mucus (None) /hpf Influenza Type A (PCR) (Not Detectd) Influenza Type B (PCR) (Not Detectd) RSV (PCR) (Not Detectd) SARS-CoV-2 (PCR) (Not Detectd) 09/06/24 09/06/24 Range/Units 10:22 11:51 WBC (3.8-10.6) k/uL RBC (3.80-5.40) m/uL Hgb (11.4-16.0) gm/dL Hct (34.0-46.0) % MCV (80.0-100.0) fL MCH (25.0-35.0) pg MCHC (31.0-37.0) g/dL RDW (11.5-15.5) % Plt Count (150-450) k/uL MPV Neutrophils % % Lymphocytes % % Monocytes % % Eosinophils % % Basophils % % Neutrophils # (1.3-7.7) k/uL Lymphocytes # (1.0-4.8) k/uL Monocytes # (0-1.0) k/uL Eosinophils # (0-0.7) k/uL Basophils # (0-0.2) k/uL Sodium (137-145) mmol/L Potassium (3.5-5.1) mmol/L Chloride (98-107) mmol/L Carbon Dioxide (22-30) mmol/L Anion Gap mmol/L BUN (7-17) mg/dL Creatinine (0.52-1.04) mg/dL Est GFR (CKD-EPI)AfAm (>60 ml/min/1.73 sqM) Est GFR (CKD-EPI)NonAf (>60 ml/min/1.73 sqM) Glucose (74-99) mg/dL Plasma Lactic Acid Misael (0.7-2.0) mmol/L Calcium (8.4-10.2) mg/dL Total Bilirubin (0.2-1.3) mg/dL AST (14-36) U/L ALT (4-34) U/L Alkaline Phosphatase (38-126) U/L Total Protein (6.3-8.2) g/dL Albumin (3.5-5.0) g/dL Urine Color Yellow Urine Appearance Clear (Clear) Urine pH 5.5 (5.0-8.0) Ur Specific Eliot 1.026 (1.001-1.035) Urine Protein 1+ H (Negative) Urine Glucose (UA) Negative (Negative) Urine Ketones Negative (Negative) Urine Blood Negative (Negative) Urine Nitrite Negative (Negative) Urine Bilirubin Negative (Negative) Urine Urobilinogen <2.0 (<2.0) mg/dL Ur Leukocyte Esterase Negative (Negative) Urine RBC 1 (0-5) /hpf Urine WBC 2 (0-5) /hpf Ur Squamous Epith Cells <1 (0-4) /hpf Hyaline Casts 1 (0-2) /lpf Urine Mucus Occasional H (None) /hpf Influenza Type A (PCR) Detected A (Not Detectd) Influenza Type B (PCR) Not Detected (Not Detectd) RSV (PCR) Not Detected (Not Detectd) SARS-CoV-2 (PCR) Not Detected (Not Detectd) - Radiology Data Radiology results: report reviewed, image reviewed Disposition Clinical Impression: Influenza A, Acute viral sinusitis Disposition: HOME SELF-CARE Condition: Stable Instructions (If sedation given, give patient instructions): Fever in Adults (ED), Influenza (ED) Additional Instructions: Complete full course of Tamiflu. You may alternate [id number] ibuprofen and Tylenol for fever control. Follow-up with PCP. Return to the ER for any new or worsening concerns. Prescriptions: Oseltamivir [Tamiflu] 75 mg PO Q12HR #10 cap Is patient prescribed a controlled substance at d/c from ED?: No Referrals: Chris Grossman MD [Primary Care Provider] - 1-2 days Time of Disposition: 12:11
[2024-09-06] MEDS: ACETAMINOPHEN TAB 325 MG TAB PO STA (10:19)
[2024-09-06] MEDS: MECLIZINE 12.5 MG TAB PO STA (10:20)
[2024-09-06] MEDS: ONDANSETRON 4 MG/2 ML VIAL IVP STA (10:21)
[2024-09-06] MEDS: SODIUM CHLORIDE 0.9% 1,000 ML IV STA (10:21)
--- NOTE | 2024-09-06 10:25 | XR ---
Chest, 2 view. HISTORY: Fever. COMPARISON: 07/17/2023 TECHNIQUE: PA and lateral views the chest are obtained. FINDINGS: There is a stable 18 x 12 mm nodular density in the right upper lobe. There is mild diffuse stable interstitial prominence likely reflecting chronic interstitial changes. There is no new airspace consolidation. No pleural effusion or pneumothorax. The heart is normal in size. Osseous structures are intact. IMPRESSION: 1. Stable right upper lobe pulmonary nodule. 2. Stable diffuse mild interstitial prominence likely chronic interstitial change. 3. No airspace consolidation. 4. No acute cardiopulmonary disease. [facility], , 09/06/2024 10:22 AM
[2024-09-06 10:31] LABS: Basophils % (A) 0 %; Eosinophils # (A) 0.1 k/uL (0-0.7); Eosinophils % (A) 1 %; HCT 43.7 % (34.0-46.0); HGB 14.6 gm/dL (11.4-16.0); Lymphocytes # (A) 0.5 k/uL (1.0-4.8); Lymphocytes % (A) 5 %; MCH 32.4 pg (25.0-35.0); MCHC 33.4 g/dL (31.0-37.0); MCV 96.9 fL (80.0-100.0); Mean Platelet Volume 9.2; Monocytes # (A) 0.5 k/uL (0-1.0); Monocytes % (A) 6 %; Neutrophils % (A) 87 %; Platelet Count 113 k/uL (150-450); RBC 4.51 m/uL (3.80-5.40); RDW 12.6 % (11.5-15.5); WBC 9.2 k/uL (3.8-10.6)
[2024-09-06 10:40] LABS: ALT 41 U/L (4-34); AST 47 U/L (14-36); African American GFR (CKD) 81 (>60 ml/min/1.73 sqM); Albumin 4.1 g/dL (3.5-5.0); Alkaline Phosphatase 86 U/L (38-126); Anion Gap 5 mmol/L; Blood Urea Nitrogen 16 mg/dL (7-17); Calcium 8.8 mg/dL (8.4-10.2); Carbon Dioxide 29 mmol/L (22-30); Chloride 103 mmol/L (98-107); Glucose 123 mg/dL (74-99); Non-African American GFR(CKD) 70 (>60 ml/min/1.73 sqM); Potassium 4.2 mmol/L (3.5-5.1); Sodium 137 mmol/L (137-145); Total Bilirubin 0.7 mg/dL (0.2-1.3); Total Protein 6.4 g/dL (6.3-8.2)
[2024-09-06 11:52] VITALS: TEMP 98.8
[2024-09-06 11:53] VITALS: PULSE 74; RESP 20
[2024-09-06 12:07] LABS: Appearance,Urine Clear (Clear); Bilirubin,Urine Negative (Negative); Blood,Urine Negative (Negative); Color,Urine Yellow; Glucose,Urine (UA) Negative (Negative); Hyaline Casts,Urine 1 /lpf (0-2); Ketones,Urine Negative (Negative); Leukocyte Esterase,Urine Negative (Negative); Mucus,Urine Occasional /hpf; Nitrite,Urine Negative (Negative); PH, Urine 5.5 (5.0-8.0); Protein,Urine 1+ (Negative); RBC,Urine 1 /hpf (0-5); Specific Gravity,Urine 1.026 (1.001-1.035); Squamous Epithelial Cell,Urine <1 /hpf (0-4); Urobilinogen,Urine <2.0 mg/dL (<2.0); WBC,Urine 2 /hpf (0-5)
[2024-09-06 12:24] VITALS: BP 118/55
== END 2024-09-06 12:24 | disposition home or self-care (01) ==
LOC: EC 09:17
DX: J10.1 Influenza due to other identified influenza virus with other respiratory manifestations (principal); J01.90 Acute sinusitis, unspecified; Z85.118 Personal history of other malignant neoplasm of bronchus and lung; Z87.891 Personal history of nicotine dependence; Z88.8 Allergy status to other drugs, medicaments and biological substances
CPT/HCPCS: 36415; 93005; 80053; 83605; 85025; 81001; 87636; 71046; 99284; 96374; 96361 ×2; J2405